=== PATIENT | female | born 1930 | race Caucasian/White ===

== ENCOUNTER 2017-04-29 18:20 | Inpatient (IN) ==
[2017-04-29] MEDS ORDERED: LACTATED RINGERS 1,000 ML IV ONE (18:33)
[2017-04-29] MEDS ORDERED: ACETAMINOPHEN 1,000 MG/100 ML BOTTLE IV ONE (18:40)
[2017-04-29] MEDS ORDERED: ONDANSETRON 4 MG/2 ML VIAL ONE (18:41)
--- NOTE | 2017-04-29 18:47 | Emergency Department Note ---
Fever HPI - General Chief Complaint: Fever Stated Complaint: Vomiting, fever Time Seen by Provider: 04/29/17 18:23 Source: patient, EMS Mode of arrival: EMS Limitations: no limitations - History of Present Illness HPI Narrative: 87-year-old female presents with vomiting, nausea, and fever that started this afternoon. She states she is vomited at least 10 times. She does not know if she aspirated at all. She states she is feeling well this morning and was able to eat a sandwich. She started feeling woozy with headache, some dizziness, and then started to vomit multiple times. She is brought in by EMS and her temp and EMS was 104.1. She also vomited which she was given Zofran in the IV which she states is helping. She denies any new abdominal pain. She states she has chronic bandlike abdominal pain after she eats. She denies any significant urinary symptoms. She has a cough only when she is talking on the phone. Runny nose that is chronic. The only thing that is new is some shortness of breath in the vomiting. She also felt chilled earlier today. She is weak and was not able to get up out of her chair earlier today as well. She has had normal stools today and has a history of having some diarrhea versus constipation. Nothing significant recently. She had a flu shot this year. She has a history of diabetes, CHF, and renal disease. She is not usually on oxygen but was satting 88% when EMS arrived at her house. She is on 3 L satting around 94% - Related Data Home Medications Medication Instructions Recorded Confirmed Aspirin [Susan Chewable Aspirin] 81 mg PO DAILY 11/30/14 04/29/17 Carvedilol [Coreg] 25 mg PO BID 11/30/14 04/29/17 Furosemide [Lasix] 40 mg PO DAILY 11/30/14 04/29/17 Potassium Chloride [Kdur] 10 meq PO BIDCC 11/30/14 04/29/17 losartan 100 mg tablet 100 mg PO QDAY 02/16/17 04/29/17 Previous Rx's Medication Instructions Recorded metformin 500 mg tablet 500 mg PO DAILY #30 tab 04/05/17 metoprolol succinate ER 100 mg 100 mg PO DAILY #30 tab 04/05/17 tablet,extended release 24 hr Allergies Allergy/AdvReac Type Severity Reaction Status Date / Time NO KNOWN DRUG ALLERGIES Allergy Unknown Uncoded 08/30/14 13:55 Review of Systems All systems ED: reviewed and negative except as stated. 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 Absent: conjunctival injection Neck: Present: normal inspection, full ROM Chest: Present: normal inspection, symmetric chest wall rise Respiratory: Present: other (decreased in right lower lobes) Cardiovascular: Present: regular rate, normal heart sounds Abdominal: Present: soft, tenderness, normal bowel sounds. Absent: distention, guarding, rebound Abdominal tenderness: Present: suprapubic, mild Extremities: Present: normal inspection, full ROM. Absent: pedal edema Neurological: Present: alert, oriented X3, CN II-XII intact Psychiatric: Present: normal affect, normal mood Skin: Present: warm, dry, intact Course Course Narrative: She will be admitted. Urine positive for nitrates. Vital Signs Temperature 102.8 F H 04/29/17 18:22 Pulse Rate 92 H 04/29/17 18:22 Respiratory Rate 30 H 04/29/17 18:22 Blood Pressure 170/73 04/29/17 18:22 Pulse Oximetry (%) 93 04/29/17 18:22 Temperature 99.9 F H 04/29/17 20:49 Pulse Rate 78 04/29/17 21:02 Respiratory Rate 30 H 04/29/17 18:22 Blood Pressure 132/102 04/29/17 21:02 Pulse Oximetry (%) 97 04/29/17 21:02 Fever - Lab Data Lab results reviewed: Yes I reviewed the patient's lab results. Result diagrams: 04/29/17 18:50 04/29/17 18:50 Lab Results 04/29/17 04/29/17 04/29/17 Range/Units 18:50 18:50 18:50 WBC 10.4 (4.5-11.0) K/mcL RBC 4.03 (4.00-5.20) M/mcL Hgb 12.1 (12.0-15.0) g/dL Hct 36.0 (36.0-48.0) % MCV 89.3 (80.0-100.0) fL MCH 30.0 (26.0-34.0) pg MCHC 33.6 (31.0-36.0) g/dL RDW 13.2 (11.5-14.5) % Plt Count 141 (140-440) K/mcL MPV 7.2 L (7.4-10.4) fL Total Counted 100 Seg Neutrophils % 73 (38-78) % Band Neutrophils % 18 H (0-10) % Lymphocytes % 7 L (15-49) % Monocytes % (Manual) 2 (1-12) % Platelet Estimate Normal (NORMAL) RBC Morphology Normal (NORMAL) VBG Lactic Acid 1.1 (0.5-2.2) mmol/L Sodium 135 (133-145) mmol/L Potassium 3.3 (3.3-5.1) mmol/L Chloride 95 L (96-108) mmol/L Carbon Dioxide 25 (22-30) mmol/L Anion Gap 15.0 (8-16) BUN 20 (8-23) mg/dl Creatinine 1.2 H (0.6-1.1) mg/dl GFR Calculation 40 Glucose 174 H (70-105) mg/dL Calcium 8.6 (8.6-10.4) mg/dl Total Bilirubin 1.1 H (0.0-1.0) mg/dL AST 33 (0-37) U/l ALT 26 (0-40) U/l Alkaline Phosphatase 96 (39-117) U/L Troponin T (0-0.03) ng/ml NT-Pro-B Natriuret Pep 703.4 H (0-450) pg/ml Total Protein 6.5 (5.9-8.4) gm/dL Albumin 3.8 (3.2-5.2) gm/dL Globulin 2.7 (2.2-3.7) gm/dL Albumin/Globulin Ratio 1.4 (1.0-2.3) Procalcitonin (<0.10) ng/mL Urine Color Urine Appearance Urine pH (5.0-9.0) Ur Specific Navarro (1.000-1.035) Urine Protein (NEG) mg/dL Urine Glucose (UA) (NEG) mg/dL Urine Ketones (NEG) mg/dL Urine Occult Blood (<0.03) mg/dL Urine Nitrate (NEG) Urine Bilirubin (NEG) mg/dL Urine Urobilinogen (NEG) mg/dL Ur Leukocyte Esterase (NEG) /uL Urine RBC (0-1) /hpf Urine WBC (0-4) /hpf Ur Squamous Epith Cells (0-4) /hpf Ur Transition Epith Cell (0-2) /hpf Urine Bacteria (0) /hpf Urine Mucus (0) /hpf Ur Culture Indicated? 04/29/17 04/29/17 04/29/17 Range/Units 18:50 18:50 20:40 WBC (4.5-11.0) K/mcL RBC (4.00-5.20) M/mcL Hgb (12.0-15.0) g/dL Hct (36.0-48.0) % MCV (80.0-100.0) fL MCH (26.0-34.0) pg MCHC (31.0-36.0) g/dL RDW (11.5-14.5) % Plt Count (140-440) K/mcL MPV (7.4-10.4) fL Total Counted Seg Neutrophils % (38-78) % Band Neutrophils % (0-10) % Lymphocytes % (15-49) % Monocytes % (Manual) (1-12) % Platelet Estimate (NORMAL) RBC Morphology (NORMAL) VBG Lactic Acid (0.5-2.2) mmol/L Sodium (133-145) mmol/L Potassium (3.3-5.1) mmol/L Chloride (96-108) mmol/L Carbon Dioxide (22-30) mmol/L Anion Gap (8-16) BUN (8-23) mg/dl Creatinine (0.6-1.1) mg/dl GFR Calculation Glucose (70-105) mg/dL Calcium (8.6-10.4) mg/dl Total Bilirubin (0.0-1.0) mg/dL AST (0-37) U/l ALT (0-40) U/l Alkaline Phosphatase (39-117) U/L Troponin T < 0.01 (0-0.03) ng/ml NT-Pro-B Natriuret Pep (0-450) pg/ml Total Protein (5.9-8.4) gm/dL Albumin (3.2-5.2) gm/dL Globulin (2.2-3.7) gm/dL Albumin/Globulin Ratio (1.0-2.3) Procalcitonin 0.80 (<0.10) ng/mL Urine Color Yellow Urine Appearance Cloudy Urine pH 6.0 (5.0-9.0) Ur Specific Navarro 1.013 (1.000-1.035) Urine Protein 30 A (NEG) mg/dL Urine Glucose (UA) Negative (NEG) mg/dL Urine Ketones Neg (NEG) mg/dL Urine Occult Blood 0.03 A (<0.03) mg/dL Urine Nitrate Pos A (NEG) Urine Bilirubin Neg (NEG) mg/dL Urine Urobilinogen 2.0 A (NEG) mg/dL Ur Leukocyte Esterase 500 A (NEG) /uL Urine RBC 4 H (0-1) /hpf Urine WBC > 182 H (0-4) /hpf Ur Squamous Epith Cells 6 H (0-4) /hpf Ur Transition Epith Cell 1 (0-2) /hpf Urine Bacteria Few A (0) /hpf Urine Mucus Few (0) /hpf Ur Culture Indicated? Yes - Radiology Data Radiology results reviewed: Yes I reviewed the patient's radiology results. Possible right-sided hilar pneumonia. Cardiomegaly - EKG Data EKG attestation: Yes I reviewed and interpreted this EKG. EKG results narrative: No acute ischemia. Disposition Pt seen by CLERK SECRETARY/PA only: Yes Clinical Impression: Fever, Sepsis UTI (urinary tract infection) Qualifiers: Urinary tract infection type: acute cystitis Hematuria presence: without hematuria Qualified Code(s): N30.00 - Acute cystitis without hematuria Disposition: Xfer As Inpt ([facility]) Condition: Fair Referrals: Yahaira Perez DO [Primary Care Provider] -
[2017-04-29 19:16] LABS: Mean Cell Volume 89.3 fL (80.0-100.0); Mean Corpuscular HGB Conc 33.6 g/dL (31.0-36.0); Platelet Count 141 K/mcL (140-440); RBC 4.03 M/mcL (4.00-5.20); Red Cell Distribution Width 13.2 % (11.5-14.5)
[2017-04-29 19:36] LABS: proBNP 703.4 pg/ml (0-450)
[2017-04-29 19:39] LABS: ALT/SGPT 26 U/l (0-40); Albumin 3.8 gm/dL (3.2-5.2); Albumin/Globulin Ratio 1.4 (1.0-2.3); Alkaline Phosphatase 96 U/L (39-117); Band Neutrophils % 18 % (0-10); Blood Urea Nitrogen 20 mg/dl (8-23); Lymphocytes % 7 % (15-49); Monocytes % (Manual) 2 % (1-12); Platelet Estimate NORMAL (NORMAL); RBC Morphology NORMAL (NORMAL); Segmented Neutrophils % 73 % (38-78)
[2017-04-29] MEDS ORDERED: cefTRIAXone 1 GM VIAL IV ONE (19:53)
--- NOTE | 2017-04-29 21:52 | Internal Med History&Physical ---
Medical - H&P: [facility] Patient information: Note initiated : 04/29/17 at 9:48 pm Service Date, if different from initiated Date: [] Patient: Mireya Paul a 87 y/o F admitted on for Vomiting, fever. Chief Complaint: weakness, vomiting, fever History of present illness: Patient is an 87-year-old female with a history of mild systolic congestive heart failure, type 2 diabetes, hypertension. Patient was feeling a little run down yesterday, but didn't think much of it. However today she was not feeling well at all. She did manage to have some food. However spent most of the morning laying around. She noticed that she was having trouble getting herself off the couch or out of a chair which is unusual for her. Normally she is independent in her ADLs. Somewhere after lunch, she became sick to her stomach. Her son called, it is hard for him to understand her on the phone. She was vomiting. The emesis was sudden in onset. It is not associated with abdominal pain. It is brownish fluid, no blood, no coffee grounds. Her son estimates this is about 4 PM. He noted she was weak, sitting up and leaning to the right. She may have aspirated some of the emesis she is unsure. Since that time she has had some shortness of breath and a cough inductive of some sputum. Secondary to the ongoing emesis she is brought to the emergency department. Found to have fever to 102, bandemia, urinary tract infection, as well as mild hypoxia with room air sats of 87% on presentation and she is being admitted. Patient denies any dysuria. Feel feverish today and then felt cold. She denies any shaking chills. She's had a dull headache, which is slowly improving. She's had dyspnea and cough is noted. No chest pain/tightness/ squeezing/pleuritic pain. No diarrhea, no abdominal pain, no vision changes, no sore throat, no myalgias. All systems: reviewed and no additional remarkable complaints except as stated Medical - H&P: PMH Medical history: Hypertension, essential (Chronic) Arthritis (Chronic) Fracture of hip (Acute) 11/2014 Diabetes type 2, controlled (Acute) CHF (congestive heart failure)-mildly reduces systolic function 11/2014 Acute renal failure (ARF) (Acute) Parotid duct obstruction (Acute) Surgical history: H/O knee surgery (Chronic) H/O shoulder surgery (Chronic) H/O shoulder surgery (Chronic) History of open reduction and internal fixation (ORIF) procedure (Chronic) Pertinent family history: Mother Arthritis Diabetes Sister Arthritis Diabetes Brother Diabetes Social history: Patient lives alone, cares for her ADLs herself. Her second in February 2015. One son lives in the area. She does not smoke. She does not drink alcohol. Medical - H&P: Meds Home Medications Medication Instructions Recorded Confirmed Type Aspirin [Susan Chewable Aspirin] 81 mg PO DAILY 11/30/14 04/29/17 History Carvedilol [Coreg] 25 mg PO BID 11/30/14 04/29/17 History Furosemide [Lasix] 40 mg PO DAILY 11/30/14 04/29/17 History Potassium Chloride [Kdur] 10 meq PO BIDCC 11/30/14 04/29/17 History losartan 100 mg tablet 100 mg PO QDAY 02/16/17 04/29/17 History metformin 500 mg tablet 500 mg PO DAILY #30 tab 04/05/17 04/29/17 Rx metoprolol succinate ER 100 mg 100 mg PO DAILY #30 tab 04/05/17 04/29/17 Rx tablet,extended release 24 hr Allergies Allergy/AdvReac Type Severity Reaction Status Date / Time NO KNOWN DRUG ALLERGIES Allergy Unknown Uncoded 08/30/14 13:55 Medical - H&P: Exam - Constitutional Vitals: Temp Pulse Resp BP Pulse Ox 99.9 F H 81 30 H 122/53 96 04/29/17 20:49 04/29/17 20:16 04/29/17 18:22 04/29/17 20:16 04/29/17 20:16 Exam: General: Alert, in no acute distress HEENT: Normocephalic. Pupils are equally round and reactive to light. Sclera are anicteric. No conjunctival injection. Oropharynx is with tacky mucous membranes, no lip or gum lesions. Tongue is midline, mildyl erythematous. Neck: Supple, no meningismus. No thyromegaly. Chest: Rales in the left base, do not clear with cough. Otherwise clear, no wheezing, respirations unlabored Cardiovascular: Regular rate and rhythm without murmur gallop or rub. Carotid pulses are 2+ without bruit. There is no lower extremity edema. Abdomen: Soft, mild suprapubic tenderness to palpation, bowel sounds are active. No hepatosplenomegaly appreciated. Lymphatic: No cervical or supraclavicular lymphadenopathy. Skin: Warm, dry. Skin turgor is decreased Musculoskeletal: No joint erythema or tenderness. Normal range of motion in the upper and lower extremities. Strength 5/5 in upper and lower extremities. Digits without cyanosis or clubbing. Neuro: Alert, oriented X3. Cranial nerves II through XII grossly intact. Sensation intact to light touch. Psychiatric: Affect and orientation are normal. Good insight. Medical - H&P: Reslt - Labs CBC & Chem 7: 04/29/17 18:50 04/29/17 18:50 Labs: Short CBC 04/29/17 Range/Units 18:50 WBC 10.4 (4.5-11.0) K/mcL Hgb 12.1 (12.0-15.0) g/dL Hct 36.0 (36.0-48.0) % Plt Count 141 (140-440) K/mcL BMP 04/29/17 18:50 Sodium 135 Potassium 3.3 Chloride 95 L Carbon Dioxide 25 BUN 20 Creatinine 1.2 H Glucose 174 H Calcium 8.6 Cardiac Enzymes 04/29/17 Range/Units 18:50 Troponin T < 0.01 (0-0.03) ng/ml Liver Function 04/29/17 Range/Units 18:50 Total Bilirubin 1.1 H (0.0-1.0) mg/dL AST 33 (0-37) U/l ALT 26 (0-40) U/l Alkaline Phosphatase 96 (39-117) U/L Albumin 3.8 (3.2-5.2) gm/dL Urine dip in the ED, large leukocytes, positive nitrites - EKG Data -: EKG Reviewed by Myself (sinus rhythm, rate of 91, left bundle branch block ( old).) - Imaging and Cardiology Chest x-ray Status: image reviewed by me (infiltrate right lower lobe) Medical - H&P: A/P (1) Sepsis Current visit: Yes Status: Acute (2) UTI (urinary tract infection) Current visit: Yes Status: Acute (3) Pneumonia Current visit: Yes Status: Acute (4) Acute respiratory failure with hypoxemia Current visit: Yes Status: Acute (5) CHF (congestive heart failure) Current visit: Yes Status: Acute (6) Diabetes type 2, controlled Current visit: Yes Status: Acute (7) Hypertension, essential Current visit: Yes Status: Chronic - Narrative A/P Narrative: 87-year-old female with significant history of diabetes, CHF, hypertension presents with abrupt onset of nausea, vomiting, weakness, fever. Found to have sepsis with urinary tract infection, hypoxia and suspected pneumonia. Sepsis. Certainly urine appears to be a source of infection. May also have a concomitant pneumonia, suspect may be aspiration in nature. Lactate is normal. Not severe sepsis. Hemodynamics are stable. Plan: Inpatient admission Continue antibiotics IV fluids Follow-up cultures. Urinary tract infection. Initial dip in the ED is positive for leukocyte esterase and nitrates. Formal urinalysis and microscopic is pending. Has received ceftriaxone in the ED. Plan: Continue ceftriaxone, follow-up cultures. Hypoxia with abnormal lung exam, abnormal radiograph. She has rales in the left lung field on exam, abnormalities in the right lower lobe on radiograph. May be an aspiration event with her prolonged emesis. Thus could be a chemical pneumonitis. Community-acquired pneumonia also possible. Plan: Continue ceftriaxone, supplemental oxygen as needed. Congestive heart failure with mild systolic dysfunction in 2015. Appears compensated. Suspect crackles are secondary to inflammation and not volume overload on her lung exam. Otherwise no evidence of volume overload. Plan: Continue with home regimen. Type 2 diabetes. Glucose is mildly elevated on admit labs in the 170s, though significant stress. Plan: We'll metformin, sliding scale insulin, Accu-Cheks, diabetic diet. Hypertension. No evidence of hemodynamic instability. Plan: Continue home regimen. Prophylaxis: Subcutaneous heparin. CODE STATUS, discussed with the patient, she wishes to be DO NOT RESUSCITATE.
[2017-04-29 21:58] LABS: Appearance,Urine CLOUDY; Bacteria,Urine FEW /hpf (0); Bilirubin,Urine NEG (NEG); Color,Urine YELLOW; Glucose,Urine (UA) NEGATIVE (NEG); Leukocyte Esterase,Urine 500 /uL (NEG); Mucus,Urine FEW /hpf (0); Protein,Urine 30 mg/dL (NEG); Specific Gravity,Urine 1.013 (1.000-1.035); Urine Blood 0.03 mg/dL (<0.03); Urine RBC 4 /hpf (0-1); Urine Squamous Epithelial Cell 6 /hpf (0-4); Urine Transitional Epi Cells 1 /hpf (0-2); Urine WBC > 182 /hpf (0-4)
[2017-04-29] MEDS ORDERED: ACETAMINOPHEN 325 MG TABLET PO PRN (22:09)
[2017-04-29] MEDS ORDERED: DEXTROSE 31 GM ORAL.SUSP PO PRN (22:09)
[2017-04-29] MEDS ORDERED: DEXTROSE 50% 50 ML VIAL IV PRN (22:09)
[2017-04-29] MEDS ORDERED: ONDANSETRON 4 MG/2 ML VIAL IV PRN (22:09)
[2017-04-29] MEDS: 0.9 % SODIUM CHLORIDE 10 ML SYRINGE IV SCH (22:29)
[2017-04-29] MEDS: 0.9 % SODIUM CHLORIDE 1,000 ML IV SCH (22:29)
[2017-04-30] MEDS: 0.9 % SODIUM CHLORIDE 10 ML SYRINGE IV SCH ×3 (04:56→22:43)
[2017-04-30] MEDS: INSULIN LISPRO 1 UNIT/0.01 ML UNIT SQ SCH ×4 (07:00→22:42)
[2017-04-30 07:16] LABS: Mean Cell Volume 89.9 fL (80.0-100.0); Mean Corpuscular HGB Conc 33.4 g/dL (31.0-36.0); Platelet Count 140 K/mcL (140-440); RBC 3.64 M/mcL (4.00-5.20); Red Cell Distribution Width 13.6 % (11.5-14.5)
--- NOTE | 2017-04-30 07:53 | XRay Report ---
HISTORY: Reason for Exam:fever, low 02 sat FINDINGS: There is no evidence of pneumonia, adenopathy or pleural effusion. The heart size is within normal limits and there is no congestive heart failure. The aorta is tortuous. There are several scattered calcifications in the mid and lower thorax on the left side. These are a chronic stable finding and could be granulomata or calcified pleural plaques. There are prosthesis in both shoulders. Comparison with the prior exam from 12/03/14 shows the heart is somewhat smaller on today's exam. There has been no other significant change. IMPRESSION: No acute abnormality Interpreted and Authenticated by: Luis Garcia 04/30/17
[2017-04-30 07:56] LABS: Blood Urea Nitrogen 18 mg/dl (8-23)
[2017-04-30] MEDS ORDERED: PNEUMOCOCCAL 23-VAL P-SAC VAC 0.5 ML VIAL IM ONE (08:00)
[2017-04-30 08:50] LABS: Band Neutrophils % 5 % (0-10); Lymphocytes % 11 % (15-49); Monocytes % (Manual) 2 % (1-12); Platelet Estimate NORMAL (NORMAL); RBC Morphology NORMAL (NORMAL); Segmented Neutrophils % 82 % (38-78)
[2017-04-30] MEDS: HEPARIN 5,000 UNIT/ML VIAL SQ SCH ×2 (09:22→22:42)
[2017-04-30] MEDS: cefTRIAXone 1 GM VIAL IV SCH (09:22)
[2017-04-30] MEDS: 0.9 % SODIUM CHLORIDE 1,000 ML IV SCH ×2 (09:23→19:54)
--- NOTE | 2017-04-30 11:35 | Internal Med Progress Note ---
Medical - PN: Subj Patient information: Note initiated : 04/30/17 at 11:33 am Service Date, if different from initiated Date: [] Patient: Mierya Paul a 87 y/o F admitted on 04/29/17 for Vomiting, Fever/ Sepsis, UTI, Pneumonia, Hypoxia. Chief Complaint: f/u UTI, sepsis Interval history: 04/29-Patient is an 87-year-old female with a history of mild systolic congestive heart failure, type 2 diabetes, hypertension. Patient was feeling a little run down yesterday, but didn't think much of it. However today she was not feeling well at all. She did manage to have some food. However spent most of the morning laying around. She noticed that she was having trouble getting herself off the couch or out of a chair which is unusual for her. Normally she is independent in her ADLs. Somewhere after lunch, she became sick to her stomach. Her son called, it is hard for him to understand her on the phone. She was vomiting. The emesis was sudden in onset. It is not associated with abdominal pain. It is brownish fluid, no blood, no coffee grounds. Her son estimates this is about 4 PM. He noted she was weak, sitting up and leaning to the right. She may have aspirated some of the emesis she is unsure. Since that time she has had some shortness of breath and a cough inductive of some sputum. Secondary to the ongoing emesis she is brought to the emergency department. Found to have fever to 102, bandemia, urinary tract infection, as well as mild hypoxia with room air sats of 87% on presentation and she is being admitted. 04/30-feels much better today. No nausea or vomiting. Tolerating diet. No fever or chills. Discussed findings on blood cultures and plan for IV antibiotics and surveillance cultures over the next few days. - Constitutional Vitals: Vital Signs Temp Pulse Resp BP Pulse Ox 97.7 F 56 L 16 147/62 98 04/30/17 06:44 04/30/17 06:45 04/30/17 06:45 04/30/17 06:44 04/30/17 06:45 Period Temp Pulse Resp BP Sys/Mayen Pulse Ox Last 24 Hr 97.7 F-102.8 F 53-92 16-30 103-170/50-102 93-98 Intake and Output 04/29/17 04/30/17 04/30/17 21:59 05:59 13:59 Intake Total 1100 / 1100 1000 / 1000 Output Total 350 / 350 Balance 1100 / 1100 -350 / -350 1000 / 1000 Weight 165 lb 181 lb 6.4 oz 181 lb 6.4 oz Patient Weight 05/01/17 05:59 Weight 181 lb 6.4 oz Intake & Output: Intake & Output 04/29/17 04/30/17 04/30/17 21:59 05:59 13:59 Intake Total 1100 / 1100 1000 / 1000 Output Total 350 / 350 Balance 1100 / 1100 -350 / -350 1000 / 1000 Weight 165 lb 181 lb 6.4 oz 181 lb 6.4 oz Intake: IV 1100 / 1100 1000 / 1000 Sodium Chloride 0.9% 1,000 ml @ 1000 / 1000 100 mls/hr IV .Q10H [facility] Rx#: [id number] Lactated Ringers 1,000 ml @ 1000 / 1000 Wide Open IV BOLUS ONE Rx#: [id number] Output: Void Amount 350 / 350 Other: # Voids 1 Exam: General: Lying in bed, no acute distress Chest: Clear, no rales, nonlabored Cardiovascular: Regular, no murmur, no edema Abdomen: Soft, nontender, active bowel sounds Neuro: Alert, oriented 3, nonfocal Medical - PN: Obj Da - Labs CBC & Chem 7: 04/30/17 05:32 04/30/17 05:32 Labs: Abnormal Lab Results 04/30/17 04/30/17 04/29/17 05:32 05:32 20:40 WBC 14.4 H RBC 3.64 L Hgb 10.9 L Hct 32.7 L MPV Seg Neutrophils % 82 H Band Neutrophils % Lymphocytes % 11 L Chloride Creatinine Glucose 139 H Calcium 8.5 L Total Bilirubin NT-Pro-B Natriuret Pep Urine Protein 30 A Urine Occult Blood 0.03 A Urine Nitrate Pos A Urine Urobilinogen 2.0 A Ur Leukocyte Esterase 500 A Urine RBC 4 H Urine WBC > 182 H Ur Squamous Epith Cells 6 H Urine Bacteria Few A 04/29/17 04/29/17 18:50 18:50 WBC RBC Hgb Hct MPV 7.2 L Seg Neutrophils % Band Neutrophils % 18 H Lymphocytes % 7 L Chloride 95 L Creatinine 1.2 H Glucose 174 H Calcium Total Bilirubin 1.1 H NT-Pro-B Natriuret Pep 703.4 H Urine Protein Urine Occult Blood Urine Nitrate Urine Urobilinogen Ur Leukocyte Esterase Urine RBC Urine WBC Ur Squamous Epith Cells Urine Bacteria Microbiology 04/29/17 20:40 Urine Culture - Preliminary Urine - Clean Void Mid-Stream Escherichia coli 04/29/17 18:50 Blood Culture - Preliminary Blood Gram negative bacillus 04/29/17 19:10 Blood Culture - Preliminary Blood Gram negative bacillus Meds: Medications Acetaminophen (Tylenol) 650 mg PO Q6HP PRN PRN Reason: PAIN/FEVER > 101 Albuterol Sulfate (Ventolin) 2.5 mg NEB Q2HP PRN PRN Reason: Shortness Of Breath Ceftriaxone Sodium (Rocephin) 1 gm IV DAILY [facility] Last Admin: 04/30/17 09:22 Dose: 1 gm Dextrose (Dextrose 50%) 0 ml IV UD PRN PRN Reason: Hypoglycemia Diagnostic Test (Pha) (Accu-Chek) 1 each FS ACHS [facility] Last Admin: 04/30/17 11:32 Dose: 1 each Glucose (Insta-Glucose) 15 gm PO PRN PRN PRN Reason: Hypoglycemia Heparin Sodium (Porcine) (Heparin) 5,000 unit SQ Q12 [facility] Last Admin: 04/30/17 09:22 Dose: 5,000 unit Sodium Chloride (Sodium Chloride 0.9%) 1,000 mls @ 100 mls/hr IV .Q10H [facility] Last Admin: 04/30/17 09:23 Dose: 100 mls/hr Insulin Human Lispro (Humalog) 0 unit SQ ACHS [facility] PRN Reason: Protocol Last Admin: 04/30/17 07:00 Dose: Not Given Ondansetron HCl (Zofran) 4 mg IV Q6HP PRN PRN Reason: Nausea And Vomiting Pneumococcal Polyvalent Vaccine (Pneumovax 23) 0.5 ml IM .ONCE ONE Stop: 05/01/17 10:01 Sodium Chloride (Saline Flush) 10 ml IV Q8 [facility] Last Admin: 04/30/17 04:56 Dose: Not Given - Imaging and cardiology Chest x-ray Additional comments: IMPRESSION: No acute abnormality Medical - PN: A/P - Time Spent With Patient Total time spent is greater than 50% in coordination of care (as documented) at patient's floor/unit and/or counseling patient: Greater than 35 minutes (1) Sepsis Status: Acute Current Visit: Yes (2) UTI (urinary tract infection) Status: Acute Current Visit: Yes (3) Acute respiratory failure with hypoxemia Status: Acute Current Visit: Yes (4) CHF (congestive heart failure) Status: Acute Current Visit: Yes (5) Diabetes type 2, controlled Status: Acute Current Visit: Yes (6) Hypertension, essential Status: Chronic Current Visit: Yes - Narrative A/P Narrative: 87-year-old female with significant history of diabetes, CHF, hypertension presents with abrupt onset of nausea, vomiting, weakness, fever. Found to have sepsis with urinary tract infection, hypoxia and suspected pneumonia, though radiograph formally read as normal. Sepsis. Urinary source with gram-negative bacteremia. Leukocytosis developing today, though bandemia is improved. Suspect this represents normal response to sepsis. Plan: Continue with current antibiotics, follow up urine and blood cultures. Plan to obtain surveillance blood cultures tomorrow. They're negative at 48 hours, likely can be discharged with 2 weeks of oral antibiotics. Urinary tract infection with gram negative bacteremia. Plan: Continue ceftriaxone, follow-up cultures, as above. Hypoxia with abnormal lung exam. Chest radiograph formally read as normal. Rales in the left lung exam have now resolved. May have had transient aspiration pneumonitis after emesis. Acute hypoxic respiratory failure is improving. Plan: Continue ceftriaxone, supplemental oxygen as needed. Congestive heart failure with mild systolic dysfunction in 2014. Appears compensated. Plan: Continue with home regimen. Type 2 diabetes. Glucose is mildly elevated on admit labs in the 170s, though significant stress. Plan: We'll metformin, sliding scale insulin, Accu-Cheks, diabetic diet. Hypertension. No evidence of hemodynamic instability. Plan: Continue home regimen. Prophylaxis: Subcutaneous heparin. CODE STATUS, discussed with the patient, she wishes to be DO NOT RESUSCITATE. Medical - PN: Qual - VTE Deep Vein Thrombosis/Pulmonary Embolism Present on Admission: No
[2017-04-30] MEDS ORDERED: cefTRIAXone 1 GM in DEXTROSE 5% IN WATER 50 ML IV SCH (20:00)
[2017-05-01] MEDS: ALBUTEROL SULFATE 2.5 MG/3 ML NEBULIZER NEB PRN ×4 (01:59→17:38)
[2017-05-01] MEDS: 0.9 % SODIUM CHLORIDE 1,000 ML IV SCH ×2 (04:10→06:32)
[2017-05-01] MEDS: 0.9 % SODIUM CHLORIDE 10 ML SYRINGE IV SCH ×3 (04:36→20:13)
[2017-05-01 05:48] LABS: Mean Cell Volume 90.2 fL (80.0-100.0); Mean Corpuscular HGB Conc 33.4 g/dL (31.0-36.0); Mean Corpuscular Hemoglobin 30.1 pg (26.0-34.0); Platelet Count 135 K/mcL (140-440); RBC 3.59 M/mcL (4.00-5.20); Red Cell Distribution Width 13.5 % (11.5-14.5)
[2017-05-01 05:59] LABS: Blood Urea Nitrogen 16 mg/dl (8-23)
[2017-05-01 06:43] LABS: Eosinophils % (Manual) 1 % (0-7); Lymphocytes % 15 % (15-49); Monocytes % (Manual) 10 % (1-12); Platelet Estimate NORMAL (NORMAL); RBC Morphology NORMAL (NORMAL); Segmented Neutrophils % 74 % (38-78)
[2017-05-01] MEDS: INSULIN LISPRO 1 UNIT/0.01 ML UNIT SQ SCH ×4 (07:04→19:16)
[2017-05-01] MEDS: LOSARTAN 50 MG TABLET PO SCH (08:51)
[2017-05-01] MEDS: CARVEDILOL 12.5 MG TABLET PO SCH ×2 (08:51→17:16)
[2017-05-01] MEDS: HEPARIN 5,000 UNIT/ML VIAL SQ SCH ×2 (08:51→19:34)
[2017-05-01] MEDS: FUROSEMIDE 40 MG TABLET PO SCH (08:51)
[2017-05-01] MEDS: cefTRIAXone 1 GM VIAL IV SCH (08:52)
[2017-05-01] MEDS ORDERED: PNEUMOCOCCAL 23-VAL P-SAC VAC 0.5 ML VIAL IM ONE (10:00)
--- NOTE | 2017-05-01 11:20 | Internal Med Progress Note ---
Medical - PN: Subj Patient information: Note initiated : 05/01/17 at 11:18 am Service Date, if different from initiated Date: [] Patient: Mireya Paul a 87 y/o F admitted on 04/29/17 for Vomiting, Fever/ Sepsis, UTI, Pneumonia, Hypoxia. Chief Complaint: follow-up UTI, sepsis, bacteremia Interval history: 04/29-Patient is an 87-year-old female with a history of mild systolic congestive heart failure, type 2 diabetes, hypertension. Patient was feeling a little run down yesterday, but didn't think much of it. However today she was not feeling well at all. She did manage to have some food. However spent most of the morning laying around. She noticed that she was having trouble getting herself off the couch or out of a chair which is unusual for her. Normally she is independent in her ADLs. Somewhere after lunch, she became sick to her stomach. Her son called, it is hard for him to understand her on the phone. She was vomiting. The emesis was sudden in onset. It is not associated with abdominal pain. It is brownish fluid, no blood, no coffee grounds. Her son estimates this is about 4 PM. He noted she was weak, sitting up and leaning to the right. She may have aspirated some of the emesis she is unsure. Since that time she has had some shortness of breath and a cough inductive of some sputum. Secondary to the ongoing emesis she is brought to the emergency department. Found to have fever to 102, bandemia, urinary tract infection, as well as mild hypoxia with room air sats of 87% on presentation and she is being admitted. 2/2-feels much better today. No nausea or vomiting. Tolerating diet. No fever or chills. Discussed findings on blood cultures and plan for IV antibiotics and surveillance cultures over the next few days. 2/3-no complaints this morning. No fever or chills. Appetite is good. Discussed with patient her home meds, she has both carvedilol and metoprolol on her list. She states she's been on those for several years, is unsure why she is on 2 meds from the same class. - Constitutional Vitals: Vital Signs Temp Pulse Resp BP Pulse Ox 97.9 F 78 22 188/77 91 05/01/17 06:21 05/01/17 04:00 05/01/17 07:18 05/01/17 06:21 05/01/17 06:21 Period Temp Pulse Resp BP Sys/Mayen Pulse Ox Last 24 Hr 96.9 F-98.5 F 62-78 16-26 154-188/70-80 91-96 Intake and Output 04/30/17 05/01/17 05/01/17 21:59 05:59 13:59 Intake Total 1200 / 1200 1100 / 1100 120 / 120 Output Total 800 / 800 300 / 300 Balance 1200 / 1200 300 / 300 -180 / -180 Weight 178 lb 4.8 oz Intake & Output: Intake & Output 04/30/17 05/01/17 05/01/17 21:59 05:59 13:59 Intake Total 1200 / 1200 1100 / 1100 120 / 120 Output Total 800 / 800 300 / 300 Balance 1200 / 1200 300 / 300 -180 / -180 Weight 178 lb 4.8 oz Intake: IV 1000 / 1000 1000 / 1000 Sodium Chloride 0.9% 1,000 ml @ 1000 / 1000 1000 / 1000 100 mls/hr IV .Q10H [facility] Rx#: [id number] Oral 200 / 200 100 / 100 120 / 120 Output: Void Amount 800 / 800 300 / 300 Other: Meal Breakfast Percent of Meal Consumed 75% Feeding Ability Independent # Voids 1 1 Exam: General: In no acute distress Chest: Clear, no rales Cardiovascular: Regular, no murmur, trace edema Abdomen: Soft, nontender Neuro: Alert, oriented, strength intact, nonfocal Medical - PN: Obj Da - Labs CBC & Chem 7: 05/01/17 04:49 05/01/17 04:49 Labs: Abnormal Lab Results 05/01/17 05/01/17 04/30/17 04:49 04:49 05:32 WBC RBC 3.59 L Hgb 10.8 L Hct 32.3 L Plt Count 135 L MPV Seg Neutrophils % Band Neutrophils % Lymphocytes % Chloride Creatinine Glucose 139 H Calcium 8.2 L 8.5 L Total Bilirubin NT-Pro-B Natriuret Pep Urine Protein Urine Occult Blood Urine Nitrate Urine Urobilinogen Ur Leukocyte Esterase Urine RBC Urine WBC Ur Squamous Epith Cells Urine Bacteria 04/30/17 04/29/17 04/29/17 05:32 20:40 18:50 WBC 14.4 H RBC 3.64 L Hgb 10.9 L Hct 32.7 L Plt Count MPV Seg Neutrophils % 82 H Band Neutrophils % Lymphocytes % 11 L Chloride 95 L Creatinine 1.2 H Glucose 174 H Calcium Total Bilirubin 1.1 H NT-Pro-B Natriuret Pep 703.4 H Urine Protein 30 A Urine Occult Blood 0.03 A Urine Nitrate Pos A Urine Urobilinogen 2.0 A Ur Leukocyte Esterase 500 A Urine RBC 4 H Urine WBC > 182 H Ur Squamous Epith Cells 6 H Urine Bacteria Few A 04/29/17 18:50 WBC RBC Hgb Hct Plt Count MPV 7.2 L Seg Neutrophils % Band Neutrophils % 18 H Lymphocytes % 7 L Chloride Creatinine Glucose Calcium Total Bilirubin NT-Pro-B Natriuret Pep Urine Protein Urine Occult Blood Urine Nitrate Urine Urobilinogen Ur Leukocyte Esterase Urine RBC Urine WBC Ur Squamous Epith Cells Urine Bacteria Microbiology 04/29/17 19:10 Blood Culture - Preliminary Blood Escherichia coli 04/29/17 20:40 Urine Culture - Final Urine - Clean Void Mid-Stream Escherichia coli 04/29/17 18:50 Blood Culture - Preliminary Blood Gram negative bacillus Meds: Medications Acetaminophen (Tylenol) 650 mg PO Q6HP PRN PRN Reason: PAIN/FEVER > 101 Albuterol Sulfate (Ventolin) 2.5 mg NEB Q2HP PRN PRN Reason: Shortness Of Breath Last Admin: 05/01/17 10:14 Dose: 2.5 mg [facility]) [facility] Last Admin: 05/01/17 08:51 Dose: 25 mg Ceftriaxone Sodium (Rocephin) 1 gm IV DAILY [facility] Last Admin: 05/01/17 08:52 Dose: 1 gm Dextrose (Dextrose 50%) 0 ml IV UD PRN PRN Reason: Hypoglycemia Diagnostic Test (Pha) (Accu-Chek) 1 each FS [facility] Last Admin: 05/01/17 07:03 Dose: 1 each Furosemide (Lasix) 40 mg PO DAILY [facility] Last Admin: 05/01/17 08:51 Dose: 40 mg Glucose (Insta-Glucose) 15 gm PO PRN PRN PRN Reason: Hypoglycemia Heparin Sodium (Porcine) (Heparin) 5,000 unit SQ Q12 [facility] Last Admin: 05/01/17 08:51 Dose: 5,000 unit Insulin Human Lispro (Humalog) 0 unit SQ [facility] PRN Reason: Protocol Last Admin: 05/01/17 07:04 Dose: Not Given Losartan Potassium (Cozaar) 100 mg PO DAILY [facility] Last Admin: 05/01/17 08:51 Dose: 100 mg Ondansetron HCl (Zofran) 4 mg IV Q6HP PRN PRN Reason: Nausea And Vomiting Potassium Chloride (Kdur) 10 meq PO BIDCC [facility] Sodium Chloride (Saline Flush) 10 ml IV Q8 [facility] Last Admin: 05/01/17 04:36 Dose: Not Given Medical - PN: A/P (1) Sepsis Status: Acute Current Visit: Yes (2) UTI (urinary tract infection) Status: Acute Current Visit: Yes (3) Acute respiratory failure with hypoxemia Status: Acute Current Visit: Yes (4) CHF (congestive heart failure) Status: Acute Current Visit: Yes (5) Diabetes type 2, controlled Status: Acute Current Visit: Yes (6) Hypertension, essential Status: Chronic Current Visit: Yes - Narrative A/P Narrative: 87-year-old female with significant history of diabetes, CHF, hypertension presents with abrupt onset of nausea, vomiting, weakness, fever. Found to have sepsis with urinary tract infection, hypoxia and suspected pneumonia, though radiograph formally read as normal. Sepsis. Urinary source with Escherichia coli in urine and blood. counts normalized today. Surveillance cultures drawn this morning. Plan: Continue with ceftriaxone, follow-up surveillance cultures. If negative , likely can go home in 48 hours to complete 2 weeks of antibiotics with orals. Urinary tract infection with Escherichia coli bacteremia. Plan: Continue ceftriaxone, follow-up cultures, as above. Hypoxia with abnormal lung exam. May have had transient aspiration pneumonitis after emesis. Acute hypoxic respiratory failure is improving/resolved Plan: Continue ceftriaxone, supplemental oxygen as needed. Congestive heart failure with mild systolic dysfunction in 2014. Appears compensated. Plan: Continue with home regimen. Type 2 diabetes. Glucose is mildly elevated on admit labs in the 170s, though significant stress. Plan: Holding metformin, sliding scale insulin, Accu-Cheks, diabetic diet. Hypertension. No evidence of hemodynamic instability. Plan: Continue home regimen, however only using carvedilol not metoprolol plus carvedilol. Likely will stop one of the other at discharge if doing well. Prophylaxis: Subcutaneous heparin. CODE STATUS, discussed with the patient, she wishes to be DO NOT RESUSCITATE. Medical - PN: Qual - VTE Deep Vein Thrombosis/Pulmonary Embolism Present on Admission: No
[2017-05-01] MEDS: POTASSIUM CHLORIDE 10 MEQ TABLET PO SCH (17:16)
[2017-05-02] MEDS: 0.9 % SODIUM CHLORIDE 10 ML SYRINGE IV SCH ×2 (05:50→15:28)
[2017-05-02 06:23] LABS: Mean Cell Volume 90.2 fL (80.0-100.0); Mean Corpuscular HGB Conc 33.2 g/dL (31.0-36.0); Platelet Count 145 K/mcL (140-440); RBC 3.59 M/mcL (4.00-5.20); Red Cell Distribution Width 13.6 % (11.5-14.5)
[2017-05-02 07:21] LABS: Blood Urea Nitrogen 11 mg/dl (8-23)
[2017-05-02 07:29] LABS: Eosinophils % (Manual) 1 % (0-7); Lymphocytes % 12 % (15-49); Monocytes % (Manual) 6 % (1-12); Platelet Estimate NORMAL (NORMAL); RBC Morphology NORMAL (NORMAL); Segmented Neutrophils % 81 % (38-78)
[2017-05-02] MEDS: INSULIN LISPRO 1 UNIT/0.01 ML UNIT SQ SCH ×2 (07:43→12:43)
[2017-05-02] MEDS: ALBUTEROL SULFATE 2.5 MG/3 ML NEBULIZER NEB PRN (08:07)
[2017-05-02] MEDS: HEPARIN 5,000 UNIT/ML VIAL SQ SCH (08:17)
[2017-05-02] MEDS: cefTRIAXone 1 GM VIAL IV SCH (08:17)
[2017-05-02] MEDS: FUROSEMIDE 40 MG TABLET PO SCH (08:17)
[2017-05-02] MEDS: CARVEDILOL 12.5 MG TABLET PO SCH (08:18)
[2017-05-02] MEDS: LOSARTAN 50 MG TABLET PO SCH (08:18)
[2017-05-02] MEDS: POTASSIUM CHLORIDE 10 MEQ TABLET PO SCH (08:18)
[2017-05-02] MEDS ORDERED: amLODIPine 5 MG TABLET PO ONE ×2 (11:53→15:20)
--- NOTE | 2017-05-02 11:53 | Discharge Summary ---
Medical - DS: Prov Patient information: Note initiated : 05/02/17 at 11:49 am Service Date, if different from initiated Date: [] Patient: Mireya Paul 87 y/o F admitted on 04/29/17 for Vomiting, Fever/ Sepsis, UTI, Hypoxia. Date of admission: 04/29/17 22:04 Discharge date: 05/02/17 Primary care physician: Yahaira Perez DO Admitting clinician: Susannah Blanca Discharging clinician: Susannah Blanca Medical - DS: Meds - Discharge Medications Prescriptions: amLODIPine [Norvasc] 5 mg PO DAILY #30 tab Levofloxacin [Levaquin] 500 mg PO DAILY #10 tab Active and Home Medications: Home Medications Aspirin [Susan Chewable Aspirin] 81 mg PO DAILY 11/30/14 [History Confirmed 04/15 Last Taken 04/29/17 08:00] Carvedilol [Coreg] 25 mg PO BID 11/30/14 [History Confirmed 04/29/17 Last Taken 04/29/17 08:00] Furosemide [Lasix] 40 mg PO DAILY 11/30/14 [History Confirmed 04/29/17 Last Taken 04/29/17 08:00] Potassium Chloride [Kdur] 10 meq PO BIDCC 11/30/14 [History Confirmed 04/29/17 Last Taken 04/29/17 08:00] losartan 100 mg tablet 100 mg PO QDAY 02/16/17 [History Confirmed 04/29/17 Last Taken 04/29/17 08:00] metformin 500 mg tablet 500 mg PO DAILY #30 tab 04/05/17 [Rx Confirmed 04/29/17 Last Taken 04/29/17 08:00] metoprolol succinate ER 100 mg tablet,extended release 24 hr 100 mg PO DAILY # 30 tab 04/05/17 [Rx Confirmed 04/29/17 Last Taken 04/29/17 08:00] Medical - DS: Hosp Hospital course: 04/29-Patient is an 87-year-old female with a history of mild systolic congestive heart failure, type 2 diabetes, hypertension. Patient was feeling a little run down yesterday, but didn't think much of it. However today she was not feeling well at all. She did manage to have some food. However spent most of the morning laying around. She noticed that she was having trouble getting herself off the couch or out of a chair which is unusual for her. Normally she is independent in her ADLs. Somewhere after lunch, she became sick to her stomach. Her son called, it is hard for him to understand her on the phone. She was vomiting. The emesis was sudden in onset. It is not associated with abdominal pain. It is brownish fluid, no blood, no coffee grounds. Her son estimates this is about 4 PM. He noted she was weak, sitting up and leaning to the right. She may have aspirated some of the emesis she is unsure. Since that time she has had some shortness of breath and a cough inductive of some sputum. Secondary to the ongoing emesis she is brought to the emergency department. Found to have fever to 102, bandemia, urinary tract infection, as well as mild hypoxia with room air sats of 87% on presentation and she is being admitted. 2/2-feels much better today. No nausea or vomiting. Tolerating diet. No fever or chills. Discussed findings on blood cultures and plan for IV antibiotics and surveillance cultures over the next few days. 2/3-no complaints this morning. No fever or chills. Appetite is good. Discussed with patient her home meds, she has both carvedilol and metoprolol on her list. She states she's been on those for several years, is unsure why she is on 2 meds from the same class. 2/4-feels well today, no specific complaints. No dyspnea. No lower extremity edema. Tolerating a diet. No nausea or vomiting. Vitals reviewed, no fevers. Blood pressure remains elevated. She is on both carvedilol and metoprolol at home. We'll stop metoprolol and substitute amlodipine for blood pressure management. Surveillance cultures from yesterday are without growth. Given her overall stability and lack of fever suspect they will remain without growth. Otherwise she is stable for discharge home. In summary: The patient's 87-year-old female who presented with nausea, fever as well as mild hypoxia on room air. She had evidence of urinary tract infection. There is early concerning for pneumonia, though radiograph was clear , and this was likely aspiration pneumonitis from nausea and vomiting just prior to presentation. Final diagnosis is sepsis from Escherichia coli urinary tract infection with bacteremia. Hypoxia resolved by hospital day 2. She has responded well to ceftriaxone. Surveillance cultures are negative. She'll be discharged home to complete a total of 2 weeks of antibiotics with oral levofloxacin for 10 further days for the E. coli bacteremia. Discharge diagnosis: Sepsis from E. coli UTI with bacteremia Secondary discharge diagnosis: Hypertension, medications adjusted Acute hypoxic respiratory failure, resolved - Time Spent with Patient Total time spent providing and/or coordinating discharge services: Greater than 30 minutes Medical - DS: Exam - Constitutional Vitals: Vital Signs Temp Pulse Pulse Resp BP Pulse Ox 05/02/17 08:07 87 18 05/02/17 07:57 22 05/02/17 07:36 98.2 F 18 181/75 92 05/02/17 04:00 98.4 F 75 18 188/72 92 05/02/17 00:00 98.7 F 72 16 172/63 91 05/01/17 20:00 98.6 F 71 18 168/77 93 05/01/17 17:40 77 16 05/01/17 15:10 97.9 F 20 154/89 91 Intake and Output 05/01/17 05/02/17 05/02/17 21:59 05:59 13:59 Intake Total 2187 / 2187 600 / 600 360 / 360 Output Total 250 / 250 Balance 1937 / 1937 600 / 600 360 / 360 Intake: IV 747 / 747 Oral 1440 / 1440 600 / 600 360 / 360 Output: Void Amount 250 / 250 Other: Meal Breakfast Breakfast Percent of Meal Consumed 50% 100% Feeding Ability Independent Independent # Voids 1 3 1 Weight 178 lb Additional comments: General: Sitting up in bed in no acute distress Chest: Clear, unlabored Cardiovascular: Regular, no edema Abdomen: Soft, nontender Neuro: Alert, oriented, nonfocal Medical - DS: Data Labs on day of discharge: Labs from last 24 hours 05/02/17 05/02/17 04:28 04:28 WBC 5.7 RBC 3.59 L Hgb 10.8 L Hct 32.4 L MCV 90.2 MCH 30.0 MCHC 33.2 RDW 13.6 Plt Count 145 MPV 7.6 Total Counted 100 Seg Neutrophils % 81 H Band Neutrophils % Not Reportable Lymphocytes % 12 L Monocytes % (Manual) 6 Eosinophils % (Manual) 1 Platelet Estimate Normal RBC Morphology Normal Sodium 140 Potassium 3.4 Chloride 105 Carbon Dioxide 25 Anion Gap 10.0 BUN 11 Creatinine 0.9 GFR Calculation 57 Glucose 86 Calcium 8.6 Preliminary micro results at discharge 05/01/17 09:09 Blood Culture - Preliminary Blood 05/01/17 09:19 Blood Culture - Preliminary Blood 04/29/17 18:50 Blood Culture - Preliminary Blood Escherichia coli 04/29/17 19:10 Blood Culture - Preliminary Blood Escherichia coli - Imaging and Cardiology Chest x-ray Additional comments: FINDINGS: There is no evidence of pneumonia, adenopathy or pleural effusion. The heart size is within normal limits and there is no congestive heart failure. The aorta is tortuous. There are several scattered calcifications in the mid and lower thorax on the left side. These are a chronic stable finding and could be granulomata or calcified pleural plaques. There are prosthesis in both shoulders. Comparison with the prior exam from 10/10 shows the heart is somewhat smaller on today's exam. There has been no other significant change. IMPRESSION: No acute abnormality Medical - DS: A/P - Patient/Caregiver Discharge Instructions Activity: increase activity as tolerated Diet: Regular Diet Additional Instructions: Stop taking metoprolol and continue carvedilol (Coreg) as they are similar medications Start taking amlodipine for blood pressure Start taking levofloxacin (antibiotic) daily on the morning of 05/03 until they are gone - Problem Maintenance (1) Sepsis Status: Resolved Qualifiers: Sepsis type: Escherichia coli Qualified Code(s): A41.51 - Sepsis due to Escherichia coli [E. coli] (2) UTI (urinary tract infection) Status: Resolved Qualifiers: Urinary tract infection type: site unspecified Hematuria presence: without hematuria Qualified Code(s): N39.0 - Urinary tract infection, site not specified (3) Acute respiratory failure with hypoxemia Status: Resolved (4) CHF (congestive heart failure) Status: Chronic Qualifiers: Congestive heart failure type: unspecified Congestive heart failure chronicity: chronic Qualified Code(s): I50.9 - Heart failure, unspecified (5) Diabetes type 2, controlled Status: Chronic (6) Hypertension, essential Status: Chronic - Follow up Plan Follow up with: Yahaira Perez DO [Primary Care Provider] - (1-2 weeks) Disposition: Home, Self-Care Prognosis: Good Rehab Potential: Good Overall status at discharge: patient is back to baseline Medical - DS: Qual - VTE Deep Vein Thrombosis/Pulmonary Embolism Present on Admission: No
== END 2017-05-02 15:35 | disposition home or self-care (01) | DRG 871 ==
LOC: ED 18:20 → MEDSUR 22:04
PROVIDERS: ADMIT Internal Medicine; ATTEND Internal Medicine

== ENCOUNTER 2018-06-16 13:52 | Inpatient (IN) ==
--- NOTE | 2018-06-16 14:03 | Emergency Department Note ---
Weakness HPI - General Chief complaint: Weakness Stated complaint: Weakness Time Seen by Provider: 06/16/18 13:58 Source: patient Mode of arrival: ambulatory Limitations: no limitations - History of Present Illness HPI Narrative: This patient was just discharged a couple of hours ago with an exacerbation of heart failure after being diuresed in the emergency room she was feeling much better. However at home she became weak your difficulty getting around and son thought she had some slurred speech. She has chronic leg weakness and may be weaker than usual in both legs at this time. No chest pain no shortness of breath now. - Related Data Home Medications Medication Instructions Recorded Confirmed Aspirin [Susan Chewable Aspirin] 81 mg PO DAILY 11/30/14 04/11/18 Previous Rx's Medication Instructions Recorded polyethylene glycol 3350 17 gram 17 g PO QDAY #30 each 06/14/17 oral powder packet Isosorbide Mononitrate [Imdur] 30 mg PO DAILY #30 tab.xl.24h 09/09/17 Ondansetron [Zofran ODT] 4 mg SL Q4HP PRN #4 tab 02/20/18 amlodipine 5 mg tablet 5 mg PO QDAY #90 tab 03/01/18 furosemide 40 mg tablet 40 mg PO QDAY #90 tab 03/01/18 losartan 100 mg tablet 100 mg PO QDAY #90 tab 03/01/18 metformin 500 mg tablet 500 mg PO QDAY #90 tab 03/01/18 carvedilol 25 mg tablet 25 mg PO BID #60 tab 05/25/18 potassium chloride ER 10 mEq 10 meq PO BIDCC #180 tab 05/30/18 tablet,extended release Allergies Allergy/AdvReac Type Severity Reaction Status Date / Time No Known Drug Allergies Allergy Verified 06/16/18 13:56 Review of Systems All systems ED: reviewed and negative except as stated. Past Medical History - Past Medical History Medical history: Reports: arthritis, atrial fibrillation (05/2017 per ER physician's note.), CHF (on furosemide 40/KCl; hospitalized previously.), DM (type II, not on insulin.), hyperlipidemia, hypertension, renal disease (acute renal failure), other (parotid duct obstruction. Sepsis. Pneumonia. Macular degeneration.). 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 R shoulder 2008. L shoulder 2014.) - Social History smoking status: Never smoker Alcohol use: Reports: None Drug use: Reports: none Physical Exam Limitations: no limitations General appearance: alert Head: atraumatic Eye: Present: normal appearance ENT: normal exam Neck: Present: normal inspection Chest: Present: normal inspection Respiratory: Present: normal lung sounds bilaterally Cardiovascular: Present: tachycardia, irregular rhythm, normal heart sounds Abdominal: Present: soft. Absent: distention, tenderness Neurological: Present: alert Cranial nerves: facial palsy (VII): Normal Motor strength - LUE: 5/5 Motor strength - RUE: 5/5 Motor strength - LLE: 2/5 Motor strength - RLE: 2/5 Psychiatric: Present: normal affect Skin: Present: warm Course Vital Signs Temperature 97.4 F 06/16/18 13:53 Pulse Rate 127 H 06/16/18 13:53 Respiratory Rate 20 06/16/18 13:53 Blood Pressure 132/89 06/16/18 13:53 Pulse Oximetry (%) 85 L 06/16/18 13:53 Temperature 97.4 F 06/16/18 13:53 Pulse Rate 98 H 06/16/18 17:07 Respiratory Rate 29 H 06/16/18 17:07 Blood Pressure 127/72 06/16/18 17:07 Pulse Oximetry (%) 95 06/16/18 17:07 Weakness - MDM Narrative Medical decision making narrative: Head CT was unremarkable and urinalysis does show UTI. She was treated with Levaquin and will be admitted to the hospital by Dr. Dixon - Lab Data Lab results reviewed: Yes I reviewed the patient's lab results. Lab Results 06/16/18 06/16/18 Range/Units 15:24 15:33 Troponin T < 0.01 (0-0.03) ng/ml Urine Color Yellow Urine Appearance Hazy Urine pH 7.0 (5.0-9.0) Ur Specific [place] 1.009 (1.000-1.035) Urine Protein Neg (NEG) mg/dL Urine Glucose (UA) Negative (NEG) mg/dL Urine Ketones Neg (NEG) mg/dL Urine Occult Blood 0.03 A (<0.03) mg/dL Urine Nitrate Neg (NEG) Urine Bilirubin Neg (NEG) mg/dL Urine Urobilinogen Neg (NEG) mg/dL Ur Leukocyte Esterase 500 A (NEG) /uL Urine RBC 8 H (0-1) /hpf Urine WBC 99 H (0-4) /hpf Ur Squamous Epith Cells < 1 (0-4) /hpf Ur Transition Epith Cell < 1 (0-2) /hpf Urine Bacteria Few A (0) /hpf Urine Mucus Few (0) /hpf Ur Culture Indicated? Yes - Radiology Data Radiology results reviewed: Yes I reviewed the patient's radiology results. Disposition Pt seen by [facility]/PA only: No Clinical Impression: UTI (urinary tract infection), CHF (congestive heart failure) Disposition: Xfer As Outpt/Obs ([facility]) Condition: Fair Referrals: Yahaira Perez DO [Primary Care Provider] - Time of Disposition: 18:00
--- NOTE | 2018-06-16 14:39 | Cat Scan Report ---
CLINICAL INFORMATION: Slurred speech as possible CVA COMPARISON: 12/03/2014 TECHNIQUE: 2.5 mm helical slices were obtained in the skull base to vertex. Following reconstruction, axial reformatted images were reviewed at bone and parenchymal windows. The exam was performed using radiation dose optimization techniques including, but not limited to, automated exposure control, adjustment of the mA and/or kV according to patient size and use of iterative reconstruction technique. FINDINGS: The ventricles, sulci, fissures, and cisterns are symmetrically large compatible with mild age-related atrophy - no extra-axial fluid collections or masses appreciated. Patchy chronic ischemic changes in the the cerebral white matter expectoration progressed. A 9 mm chronic lacunar infarct left thalamus and a 8 mm remote lacunar infarct in the right lentiform nucleus posterior limb right internal capsule seen - as before. A few remote lacunar infarcts seen throughout the remainder of the basal ganglia and deep white matter noted. There is no intracerebral hemorrhage, mass effect or edema. Bone windows show no osseous abnormality. IMPRESSION: Mild atrophy and chronic ischemic changes in the cerebral white matter and remote lacunar infarcts unchanged 2014. No acute findings Interpreted and Authenticated by: Jorge A Nur 06/16/18
[2018-06-16] MEDS ORDERED: LEVOFLOXACIN 750 MG/150 ML BAG IV ONE (15:36)
[2018-06-16 15:58] LABS: Appearance,Urine HAZY; Bacteria,Urine FEW /hpf (0); Bilirubin,Urine NEG (NEG); Color,Urine YELLOW; Glucose,Urine (UA) NEGATIVE (NEG); Leukocyte Esterase,Urine 500 /uL (NEG); Mucus,Urine FEW /hpf (0); Protein,Urine NEG (NEG); Specific Gravity,Urine 1.009 (1.000-1.035); Urine Blood 0.03 mg/dL (<0.03); Urine RBC 8 /hpf (0-1); Urine Squamous Epithelial Cell < 1 /hpf (0-4); Urine Transitional Epi Cells < 1 /hpf (0-2); Urine WBC 99 /hpf (0-4); Urobilinogen,Urine NEG (NEG)
[2018-06-16] MEDS ORDERED: 0.9 % SODIUM CHLORIDE 1,000 ML IV ONE (15:58)
--- NOTE | 2018-06-16 18:25 | Internal Med History&Physical ---
Medical - H&P: HPI Patient information: Note initiated : 06/16/18 at 6:21 pm Service Date, if different from initiated Date: [] Patient: Mireya Paul a 88 y/o F admitted on for Weakness. Chief Complaint: [] History of present illness: Ms. Paul is a 88 year old F with history of atrial fibrillation, diabetes, heart failure presents to the emergency room today twice for evaluation of weakness shortness of breath. The patient was not feeling well yesterday but was able to carry out her activities of daily living, this morning she was noted that she was not herself weak tired and short of breath on minimal exertion. She denied any chest pain, cough fever chills. The patient was seen in the ED earlier today and diagnosed with mild CHF, she had no increased oxygen needs at that time was treated with diuretics and discharged back home. After going back home the patient after getting in the house was very weak, unable to do much inside the house her son noted that he had to literally carry her back to the hospital. He is very concerned that patient lives alone and will not be able to care for himself. On presentation to the ER again the patient was afebrile temperature 97.3, heart rate ranged from 83 239, blood pressure 132/89 and saturation of 85%, needing 2 L of oxygen to maintain more than 90. UA was suggestive of a UTI, patient was given levofloxacin and admitted to the hospital for further management. Patient's lab done today showed WBC count of 7.2, neutrophils 87% hemoglobin 1 3.3 platelets 166, sodium 135 potassium 4.0 creatinine 1.0 glucose 125 BNP 2864. Chest x-ray done today showed mild CHF. EKG shows lbbb and atrial fibrillation The patient denies any foul-smelling urine or burning urine, does have increased frequency of urination. The patient has chronic headaches, chronic blurring of vision from macular degeneration, she has abdominal pain a bandlike sensation in her abdomen which notes has been going on for many years, she denies nausea vomiting diarrhea denies any new joint pains denies any skin rashes denies any bleeding from anywhere. Given that the patient is very weak unable to care for herself, has somewhat increased oxygen needs, tachycardic from atrial fibrillation and possible UTI she is being admitted to the hospital for further management. All systems: reviewed and no additional remarkable complaints except as stated Medical - H&P: H Medical history: Medical History (Last Reviewed 04/11/18 @ 13:13 by Yahaira Perez DO) Constipation (Chronic) Hypertension, essential (Chronic) Arthritis (Chronic) Fracture of hip (Acute) Diabetes type 2, controlled (Chronic) CHF (congestive heart failure) (Chronic) Acute renal failure (ARF) (Acute) Parotid duct obstruction (Acute) Surgical history: Past Surgical History (Last Reviewed 04/11/18 @ 13:13 by Yahaira Perez DO) H/O knee surgery (Chronic) H/O shoulder surgery (Chronic) H/O shoulder surgery (Chronic) History of open reduction and internal fixation (ORIF) procedure (Chronic) H/O hysterectomy for benign disease (Resolved) History of cholecystectomy (Resolved) Pertinent family history: Family History (Last Reviewed 04/11/18 @ 13:13 by Yahaira Perez DO) Mother Arthritis Diabetes Sister Arthritis Diabetes Brother Diabetes Medical - H&P: Meds Home Medications Medication Instructions Recorded Confirmed Type Aspirin [Susan Chewable Aspirin] 81 mg PO DAILY 11/30/14 04/11/18 History polyethylene glycol 3350 17 gram 17 g PO QDAY #30 each 06/14/17 04/11/18 Rx oral powder packet Isosorbide Mononitrate [Imdur] 30 mg PO DAILY #30 tab.xl.24h 09/09/17 04/11/18 Rx Ondansetron [Zofran ODT] 4 mg SL Q4HP PRN #4 tab 02/20/18 04/11/18 Rx amlodipine 5 mg tablet 5 mg PO QDAY #90 tab 03/01/18 04/11/18 Rx furosemide 40 mg tablet 40 mg PO QDAY #90 tab 03/01/18 04/11/18 Rx losartan 100 mg tablet 100 mg PO QDAY #90 tab 03/01/18 04/11/18 Rx metformin 500 mg tablet 500 mg PO QDAY #90 tab 03/01/18 04/11/18 Rx carvedilol 25 mg tablet 25 mg PO BID #60 tab 05/25/18 Rx potassium chloride ER 10 mEq 10 meq PO BIDCC #180 tab 05/30/18 Rx tablet,extended release Allergies Allergy/AdvReac Type Severity Reaction Status Date / Time No Known Drug Allergies Allergy Verified 06/16/18 13:56 Medical - H&P: Exam - Constitutional Vitals: Temp Pulse Resp BP Pulse Ox 97.4 F 145 H 22 129/93 92 06/16/18 13:53 06/16/18 18:19 06/16/18 18:19 06/16/18 18:17 06/16/18 18:19 Exam: GENERAL: The patient is a well-developed, well-nourished in no apparent distress. Is alert and oriented x3. VITAL SIGNS: Reviewed and as noted elsewhere. HEENT: Head is normocephalic and atraumatic. Extraocular muscles are intact. Pupils are equal, round, and reactive to light. Nares appeared normal. Mouth appears any without lesions. Mucous membranes are moist. NECK: Normal to inspection, Supple, No lymphadenopathy or thyromegaly. LUNGS: Air entry equal on both sides, no wheezing, crackles or rhonchi noted. No accessory muscles of respiration HEART: tachycardic rate and rhythm irregular , S1 and S2 heard, distant heart sounds. ABDOMEN: Soft, nontender, and nondistended. Positive bowel sounds. No hepatosplenomegaly was noted. EXTREMITIES: No cyanosis, clubbing, rash, lesions , edema + NEUROLOGIC: Cranial nerves II through XII are grossly intact. Motor and Sensory System Grossly Intact PSYCHIATRIC: Normal affect, Normal Mood. Appropriate Behavior. SKIN: No ulceration or wounds noted, No jaundice, No rash noted. Medical - H&P: Reslt - Labs Labs: Cardiac Enzymes 06/16/18 Range/Units 15:33 Troponin T < 0.01 (0-0.03) ng/ml Urine 06/16/18 Range/Units 15:24 Urine Color Yellow Urine Appearance Hazy Urine pH 7.0 (5.0-9.0) Ur Specific [place] 1.009 (1.000-1.035) Urine Protein Neg (NEG) mg/dL Urine Glucose (UA) Negative (NEG) mg/dL Medical - H&P: A/P - Narrative A/P Narrative: A/P Acute Congestive heart failure -Mild lv dysfunction in echo 2014, mild , -precipitated by UTI -check echo -IV lasix 40 bidd for now Hypoxia -from chf, oxygen via nasal canula to keep osat > 90 UTI -Does not have much symptoms, however is definitely weak, -gloria treat with rocephin, urine culture pending DM -SSI insulin for glucose control HTN -resume home meds once verified, ATrial fibrillation with RVR -not on anticoagulation it seems, -beta blockers for rate control -monitor on tele -echo Weakness/Debility -from chf and UTI, -OT/PT eval, ST eval DVT on hep sq DNR code status Regular diet (given age will not restrict) Social History - Social History marital status: - Tobacco smoking status: Never smoker - Alcohol alcohol intake frequency: does not drink - Substance use substance use type: does not use
[2018-06-16] MEDS ORDERED: DEXTROSE 31 GM ORAL.SUSP PO PRN (19:44)
[2018-06-16] MEDS ORDERED: DEXTROSE 50% 50 ML VIAL IV PRN (19:44)
[2018-06-16] MEDS ORDERED: ONDANSETRON 4 MG/2 ML VIAL IV PRN (19:44)
[2018-06-16] MEDS ORDERED: NALOXONE HCL 0.4 MG/ML VIAL IV PRN (19:44)
[2018-06-16] MEDS ORDERED: cefTRIAXone 1 GM in DEXTROSE 5% IN WATER 50 ML IV SCH (19:44)
[2018-06-16] MEDS: INSULIN LISPRO 1 UNIT/0.01 ML UNIT SQ SCH (21:27)
[2018-06-16] MEDS ORDERED: FUROSEMIDE 40 MG/4 ML VIAL IV ONE (21:28)
[2018-06-16] MEDS: 0.9 % SODIUM CHLORIDE 10 ML SYRINGE IV SCH (21:28)
[2018-06-16] MEDS ORDERED: cefTRIAXone 1 GM VIAL ONE (21:28)
[2018-06-16] MEDS: FUROSEMIDE 40 MG/4 ML VIAL IV SCH (21:38)
[2018-06-16] MEDS: CARVEDILOL 12.5 MG TABLET PO SCH (21:46)
[2018-06-16] MEDS: HEPARIN 5,000 UNIT/ML VIAL SQ SCH (22:18)
[2018-06-17] MEDS: 0.9 % SODIUM CHLORIDE 10 ML SYRINGE IV SCH ×3 (05:43→21:04)
[2018-06-17 07:07] LABS: Basophils # (Auto) 0 K/mcL (0.0-0.3); Basophils % (Auto) 0.1 % (0.0-2.0); Eosinophils # (Auto) 0 K/mcL (0.0-0.7); Eosinophils % (Auto) 0 % (0.0-7.0); Granulocytes % (Auto) 84.3 % (38.0-78.0); Lymphocytes # (Auto) 0.6 K/mcL (1.5-4.8); Lymphocytes % (Auto) 8.4 % (15.5-49.0); Mean Cell Volume 89.6 fL (80.0-100.0); Mean Corpuscular HGB Conc 32.9 g/dL (31.0-36.0); Monocytes # (Auto) 0.5 K/mcL (0.1-0.9); Monocytes % (Auto) 7.2 % (1.0-12.0); Platelet Count 131 K/mcL (140-440); RBC 4.47 M/mcL (4.00-5.20); Red Cell Distribution Width 13.8 % (11.5-14.5)
[2018-06-17 07:30] LABS: ALT/SGPT 12 U/l (0-40); Albumin 3.4 gm/dL (3.2-5.2); Alkaline Phosphatase 70 U/L (39-117); Bilirubin,Direct < 0.2 mg/dL (0.0-0.3); Blood Urea Nitrogen 14 mg/dl (8-23); Gamma Glutamyl Transpeptidase 12 U/L (5-36); Uric Acid 5.1 mg/dL (2.5-8.0)
[2018-06-17] MEDS: INSULIN LISPRO 1 UNIT/0.01 ML UNIT SQ SCH ×4 (07:56→20:43)
--- NOTE | 2018-06-17 08:34 | XRay Report ---
CLINICAL INFORMATION: chf COMPARISON: 06/16/2018 FINDINGS: Moderate cardiomegaly is unchanged. Mediastinum is unremarkable. Pulmonary vessels have returned to normal caliber. Underlying chronic bronchitis changes noted. There is minor atelectasis right base IMPRESSION: Interval resolution CHF. Underlying chronic bronchitis and minor right basilar atelectasis Interpreted and Authenticated by: Jorge A Nur 06/17/18
[2018-06-17] MEDS: CARVEDILOL 12.5 MG TABLET PO SCH ×2 (08:52→16:52)
[2018-06-17] MEDS: POTASSIUM CHLORIDE 10 MEQ TABLET PO SCH ×2 (08:52→16:53)
[2018-06-17] MEDS: FUROSEMIDE 40 MG/4 ML VIAL IV SCH ×2 (08:52→16:53)
[2018-06-17] MEDS: HEPARIN 5,000 UNIT/ML VIAL SQ SCH ×2 (08:53→20:42)
[2018-06-17] MEDS: LOSARTAN 50 MG TABLET PO SCH (08:53)
[2018-06-17] MEDS: amLODIPine 5 MG TABLET PO SCH (08:53)
[2018-06-17] MEDS: ASPIRIN 81 MG TAB.CHEW PO SCH (08:53)
[2018-06-17] MEDS: cefTRIAXone 1 GM VIAL IV SCH (11:00)
[2018-06-17] MEDS: BENZOCAINE/MENTHOL 1 LOZENGE PO PRN ×2 (11:01→18:17)
[2018-06-17] MEDS ORDERED: MAGNESIUM SULFATE 2 GM/50 ML BAG IV ONE (13:20)
--- NOTE | 2018-06-17 13:29 | Internal Med Progress Note ---
Medical - PN: Subj Patient information: Note initiated : 06/17/18 at 1:26 pm Service Date, if different from initiated Date: [] Patient: Mireya Paul a 88 y/o F admitted on 06/16/18 for Weakness. Chief Complaint: [] Interval history: Ms. Paul is a 88 year old F with history of atrial fibrillation, diabetes, h eart failure presents to the emergency room today twice for evaluation of weakness shortness of breath. The patient was not feeling well yesterday but was able to carry out her activities of daily living, this morning she was noted that she was not herself weak tired and short of breath on minimal exertion. She denied any chest pain, cough fever chills. The patient was seen in the ED earlier today and diagnosed with mild CHF, she had no increased oxygen needs at that time was treated with diuretics and discharged back home. After going back home the patient after getting in the house was very weak, unable to do much inside the house her son noted that he had to literally carry her back to the hospital. He is very concerned that patient lives alone and will not be able to care for himself. On presentation to the ER again the patient was afebrile temperature 97.3, heart rate ranged from 83 239, blood pressure 132/89 and saturation of 85%, needing 2 L of oxygen to maintain more than 90. UA was suggestive of a UTI, patient was given levofloxacin and admitted to the hospital for further management. Patient's lab done today showed WBC count of 7.2, neutrophils 87% hemoglobin 13. 3 platelets 166, sodium 135 potassium 4.0 creatinine 1.0 glucose 125 BNP 2864. Chest x-ray done today showed mild CHF. EKG shows lbbb and atrial fibrillation The patient denies any foul-smelling urine or burning urine, does have increased frequency of urination. The patient has chronic headaches, chronic blurring of vision from macular degeneration, she has abdominal pain a bandlike sensation i n her abdomen which notes has been going on for many years, she denies nausea vomiting diarrhea denies any new joint pains denies any skin rashes denies any bleeding from anywhere. Given that the patient is very weak unable to care for herself, has somewhat increased oxygen needs, tachycardic from atrial fibrillation and possible UTI she is being admitted to the hospital for further management. 06/17 Patient seen examined, feels better than yesterday no new complaints or concerns low grade temp noted, no new overnight issues. Pertinent ROS: Denies headache, dizziness Denies chest pain, palpitations Denies cough or shortness of breath Denies abdominal pain, nausea or vomiting. - Constitutional Vitals: Vital Signs Temp Pulse Resp BP Pulse Ox 98.2 F 111 H 20 129/69 91 06/17/18 11:51 06/16/18 19:55 06/17/18 11:51 06/17/18 11:51 06/17/18 11:51 Period Temp Pulse Resp BP Sys/Mayen Pulse Ox Last 24 Hr 97.4 F-100.1 F 62-145 20-44 115-147/54-114 83-98 Intake and Output 06/16/18 06/17/18 06/17/18 21:59 05:59 13:59 Intake Total 1150 300 Output Total 1250 Balance 1150 -950 Weight 157 lb 157 lb Patient Weight 06/18/18 05:59 Weight 157 lb Intake & Output: Intake & Output 06/16/18 06/17/18 06/17/18 21:59 05:59 13:59 Intake Total 1150 300 Output Total 1250 Balance 1150 -950 Weight 157 lb 157 lb Intake: IV 1150 Sodium Chloride 0.9% 1,000 ml @ 1000 Wide Open IV BOLUS ONE Rx#: [id number] Oral 300 Output: Urine Catheter Amount 1250 Other: Percent of Meal Consumed 50% Feeding Ability Independent Urine Appearance Clear Uretheral (Mueller) Clear Urine Color Bright Yellow Uretheral (Muleler) Bright Yellow Urine Odor Uretheral (Mueller) Normal Stool Size Small Stool Color Brown Stool Consistency Formed # Bowel Movements 0 Exam: Constitutional; Afebrile, cooperative, alert, not in distress. Respiratory system: Air Entry equal on both sides, No crackles or wheezing, no rhonchi. CVS- Rate rhythm regular, S1,S2 heard, no gallop, no rub. Abdomen- Soft nontender abdomen, no organomegaly, no tenderness, no guarding or rigidity, CENTRAL STORES ATTENDANT- AOOx3, moving all extremities, no gross focal deficit noted. Medical - PN: Obj Da - Labs CBC & Chem 7: 06/17/18 03:45 06/17/18 03:45 Labs: Abnormal Lab Results 06/17/18 06/17/18 06/16/18 03:45 03:45 15:24 Plt Count 131 L Gran % 84.3 H Lymph % (Auto) 8.4 L Lymph # (Auto) 0.6 L Chloride 94 L Lactate Dehydrogenase 326 H Urine Occult Blood 0.03 A Ur Leukocyte Esterase 500 A Urine RBC 8 H Urine WBC 99 H Urine Bacteria Few A Meds: Medications Acetaminophen (Tylenol) 650 mg PO Q6HP PRN PRN Reason: PAIN/FEVER > 101 Amlodipine Besylate (Norvasc) 5 mg PO QDAY [facility] Last Admin: 06/17/18 08:53 Dose: 5 mg Documented by: Aspirin (Aspirin) 81 mg PO DAILY [facility] Last Admin: 06/17/18 08:53 Dose: 81 mg Documented by: Carvedilol (Coreg) 25 mg PO BIDCC [facility] Last Admin: 06/17/18 08:52 Dose: 25 mg Documented by: Ceftriaxone Sodium (Rocephin) 1 gm IV Q24H [facility] Last Admin: 06/17/18 11:00 Dose: 1 gm Documented by: Dextrose (Dextrose 50%) 0 ml IV UD PRN PRN Reason: Hypoglycemia Diagnostic Test (Pha) (Accu-Chek) 1 each FS [facility] Last Admin: 06/17/18 07:56 Dose: 1 each Documented by: Furosemide (Lasix) 40 mg IV BIDD [facility] Last Admin: 06/17/18 08:52 Dose: 40 mg Documented by: Glucose (Insta-Glucose) 15 gm PO PRN PRN PRN Reason: Hypoglycemia Heparin Sodium (Porcine) (Heparin) 5,000 unit SQ Q12 [facility] Last Admin: 06/17/18 08:53 Dose: 5,000 unit Documented by: Magnesium Sulfate (Magnesium Sulfate) 2 gm in 50 mls @ 50 mls/hr IV ONCE ONE Stop: 06/17/18 14:19 Insulin Human Lispro (Humalog) 0 unit SQ [facility]; Protocol Last Admin: 06/17/18 07:56 Dose: Not Given Documented by: Losartan Potassium (Cozaar) 100 mg PO DAILY [facility] Last Admin: 06/17/18 08:53 Dose: 100 mg Documented by: Naloxone HCl (Narcan) 0.1 mg IV Q2MIN PRN PRN Reason: Opiate Reversal Ondansetron HCl (Zofran) 4 mg IV Q4HP PRN PRN Reason: Nausea And Vomiting Potassium Chloride (Kdur) 10 meq PO BIDCC [facility] Last Admin: 06/17/18 08:52 Dose: 10 meq Documented by: Sodium Chloride (Saline Flush) 10 ml IV Q8 [facility] Last Admin: 06/17/18 05:43 Dose: 10 ml Documented by: Throat Lozenges (Cepacol) 1 lozenge PO PRN PRN PRN Reason: Sore Throat Last Admin: 06/17/18 11:01 Dose: 1 lozenge Documented by: Medical - PN: A/P - Time Spent With Patient Total time spent is greater than 50% in coordination of care (as documented) at patient's floor/unit and/or counseling patient: - Narrative A/P Narrative: A/P Acute Congestive heart failure -Mild lv dysfunction in echo 2014, mild , -precipitated by UTI -check echo, report pending. -IV lasix 40 bidd for now Hypoxia -from chf, oxygen via nasal canula to keep osat > 90 -wean off oxygen as tolerated. UTI -Does not have much symptoms, however is definitely weak, -gloria treat with rocephin, urine culture pending, initial culture is gram neg bacillus. DM -SSI insulin for glucose control HTN -resume home meds once verified, ATrial fibrillation with RVR -not on anticoagulation it seems, -beta blockers for rate control -monitor on tele, rate better today -echo Weakness/Debility -from chf and UTI, -OT/PT eval, ST eval DVT on hep sq DNR code status Regular diet (given age will not restrict) Medical - PN: Qual - VTE Deep Vein Thrombosis/Pulmonary Embolism Present on Admission: No
[2018-06-18] MEDS: ACETAMINOPHEN 325 MG TABLET PO PRN ×2 (04:20→23:58)
[2018-06-18] MEDS: 0.9 % SODIUM CHLORIDE 10 ML SYRINGE IV SCH ×5 (05:41→20:44)
[2018-06-18 05:56] LABS: ALT/SGPT 12 U/l (0-40); Albumin 3.2 gm/dL (3.2-5.2); Albumin/Globulin Ratio 1.1 (1.0-2.3); Alkaline Phosphatase 61 U/L (39-117); Bilirubin,Direct < 0.2 mg/dL (0.0-0.3); Blood Urea Nitrogen 18 mg/dl (8-23); Gamma Glutamyl Transpeptidase 10 U/L (5-36); Uric Acid 5.5 mg/dL (2.5-8.0)
[2018-06-18 06:04] LABS: Basophils # (Auto) 0 K/mcL (0.0-0.3); Basophils % (Auto) 0.3 % (0.0-2.0); Eosinophils # (Auto) 0 K/mcL (0.0-0.7); Eosinophils % (Auto) 0.2 % (0.0-7.0); Granulocytes % (Auto) 76.4 % (38.0-78.0); Lymphocytes # (Auto) 0.8 K/mcL (1.5-4.8); Lymphocytes % (Auto) 13.7 % (15.5-49.0); Monocytes # (Auto) 0.5 K/mcL (0.1-0.9); Monocytes % (Auto) 9.4 % (1.0-12.0); Platelet Count 137 K/mcL (140-440); RBC 4.22 M/mcL (4.00-5.20); Red Cell Distribution Width 13.6 % (11.5-14.5)
[2018-06-18] MEDS: INSULIN LISPRO 1 UNIT/0.01 ML UNIT SQ SCH (07:43)
[2018-06-18] MEDS: CARVEDILOL 12.5 MG TABLET PO SCH ×2 (08:08→19:15)
[2018-06-18] MEDS: POTASSIUM CHLORIDE 10 MEQ TABLET PO SCH ×2 (08:08→19:15)
[2018-06-18] MEDS: FUROSEMIDE 40 MG/4 ML VIAL IV SCH ×2 (08:09→15:51)
[2018-06-18] MEDS: ASPIRIN 81 MG TAB.CHEW PO SCH (09:05)
[2018-06-18] MEDS: cefTRIAXone 1 GM VIAL IV SCH (09:05)
[2018-06-18] MEDS: amLODIPine 5 MG TABLET PO SCH (09:05)
[2018-06-18] MEDS: HEPARIN 5,000 UNIT/ML VIAL SQ SCH ×2 (09:05→20:44)
[2018-06-18] MEDS: LOSARTAN 50 MG TABLET PO SCH (09:05)
--- NOTE | 2018-06-18 10:24 | Internal Med Progress Note ---
Medical - PN: Subj Patient information: Note initiated : 06/18/18 at 10:21 am Service Date, if different from initiated Date: [] Patient: Mireya Paul a 88 y/o F admitted on 06/16/18 for Weakness. Chief Complaint: [] Interval history: Ms. Paul is a 88 year old F with history of atrial fibrillation, diabetes, heart failure presents to the emergency room today twice for evaluation of weakness shortness of breath. The patient was not feeling well yesterday but was able to carry out her activities of daily living, this morning she was noted that she was not herself weak tired and short of breath on minimal exertion. She denied any chest pain, cough fever chills. The patient was seen in the ED earlier today and diagnosed with mild CHF, she had no increased oxygen needs at that time was treated with diuretics and discharged back home. After going back home the patient after getting in the house was very weak, unable to do much inside the house her son noted that he had to literally carry her back to the hospital. He is very concerned that patient lives alone and will not be able to care for himself. On presentation to the ER again the patient was afebrile temperature 97.3, heart rate ranged from 83 239, blood pressure 132/89 and saturation of 85%, needing 2 L of oxygen to maintain more than 90. UA was suggestive of a UTI, patient was given levofloxacin and admitted to the hospital for further management. Patient's lab done today showed WBC count of 7.2, neutrophils 87% hemoglobin 13 .3 platelets 166, sodium 135 potassium 4.0 creatinine 1.0 glucose 125 BNP 2864. Chest x-ray done today showed mild CHF. EKG shows lbbb and atrial fibrillation The patient denies any foul-smelling urine or burning urine, does have increased frequency of urination. The patient has chronic headaches, chronic blurring of vision from macular degeneration, she has abdominal pain a bandlike sensation in her abdomen which notes has been going on for many years, she denies nausea vomiting diarrhea denies any new joint pains denies any skin rashes denies any bleeding from anywhere. Given that the patient is very weak unable to care for herself, has somewhat increased oxygen needs, tachycardic from atrial fibrillation and possible UTI she is being admitted to the hospital for further management. 06/17 Patient seen examined, feels better than yesterday no new complaints or concerns low grade temp noted, no new overnight issues. 06/18 Patient seen examined, no acute issues tolerating po meds well on 2 L oxygen Febrile to 102 Echo shows severe chf, 20-25% lvef Pertinent ROS: Denies headache, dizziness Denies chest pain, palpitations Denies cough or shortness of breath Denies abdominal pain, nausea or vomiting. - Constitutional Vitals: Vital Signs Temp Pulse Resp BP Pulse Ox 98.2 F 88 20 110/56 90 06/18/18 07:50 06/17/18 18:43 06/18/18 07:50 06/18/18 07:50 06/18/18 07:50 Period Temp Pulse Resp BP Sys/Mayen Pulse Ox Last 24 Hr 98.2 F-101.2 F 88-88 20-32 110-136/56-69 87-98 Intake and Output 06/17/18 06/18/18 06/18/18 21:59 05:59 13:59 Intake Total 410 75 400 Output Total 550 700 Balance -140 -625 400 Weight 158 lb 4.8 oz Intake & Output: Intake & Output 06/17/18 06/18/18 06/18/18 21:59 05:59 13:59 Intake Total 410 75 400 Output Total 550 700 Balance -140 -625 400 Weight 158 lb 4.8 oz Intake: IV 50 Oral 360 75 400 Output: Urine Catheter Amount 550 700 Other: Meal Dinner Percent of Meal Consumed 50% 50% Feeding Ability Total Assistance Needs Supervision Urine Appearance Clear Uretheral (Mueller) Clear Urine Color Dark Yellow Uretheral (Mueller) Straw Urine Odor Normal Stool Size Large Large Stool Color Brown Brown Stool Consistency Formed Soft # Bowel Movements 1 Exam: Constitutional; Afebrile, cooperative, alert, not in distress. Respiratory system: Air Entry equal on both sides, bibasilar crackles, CVS- Rate rhythm irregular, S1,S2 heard, no gallop, no rub. Abdomen- Soft nontender abdomen, no organomegaly, no tenderness, no guarding or rigidity, PROGRESSIVE ASSEMBLER AND FITTER- AOOx3, moving all extremities, no gross focal deficit noted. Medical - PN: Obj Da - Labs CBC & Chem 7: 06/18/18 03:55 06/18/18 03:55 Labs: Abnormal Lab Results 06/18/18 06/18/18 06/17/18 03:55 03:55 03:45 Plt Count 137 L Gran % Lymph % (Auto) 13.7 L Lymph # (Auto) 0.8 L Chloride 93 L 94 L Creatinine 1.2 H Calcium 8.2 L Lactate Dehydrogenase 326 H Urine Occult Blood Ur Leukocyte Esterase Urine RBC Urine WBC Urine Bacteria 06/17/18 06/16/18 03:45 15:24 Plt Count 131 L Gran % 84.3 H Lymph % (Auto) 8.4 L Lymph # (Auto) 0.6 L Chloride Creatinine Calcium Lactate Dehydrogenase Urine Occult Blood 0.03 A Ur Leukocyte Esterase 500 A Urine RBC 8 H Urine WBC 99 H Urine Bacteria Few A Meds: Medications Acetaminophen (Tylenol) 650 mg PO Q6HP PRN PRN Reason: PAIN/FEVER > 101 Last Admin: 06/18/18 04:20 Dose: 650 mg Documented by: Amlodipine Besylate (Norvasc) 5 mg PO QDAY [facility] Last Admin: 06/18/18 09:05 Dose: 5 mg Documented by: Aspirin (Aspirin) 81 mg PO DAILY [facility] Last Admin: 06/18/18 09:05 Dose: 81 mg Documented by: Carvedilol (Coreg) 25 mg PO BIDCC [facility] Last Admin: 06/18/18 08:08 Dose: 25 mg Documented by: Ceftriaxone Sodium (Rocephin) 1 gm IV Q24H [facility] Last Admin: 06/18/18 09:05 Dose: 1 gm Documented by: Dextrose (Dextrose 50%) 0 ml IV UD PRN PRN Reason: Hypoglycemia Diagnostic Test (Pha) (Accu-Chek) 1 each FS [facility] Last Admin: 06/18/18 07:43 Dose: 1 each Documented by: Furosemide (Lasix) 40 mg IV BIDD [facility] Last Admin: 06/18/18 08:09 Dose: 40 mg Documented by: Glucose (Insta-Glucose) 15 gm PO PRN PRN PRN Reason: Hypoglycemia Heparin Sodium (Porcine) (Heparin) 5,000 unit SQ Q12 [facility] Last Admin: 06/18/18 09:05 Dose: 5,000 unit Documented by: Insulin Human Lispro (Humalog) 0 unit SQ [facility]; Protocol Last Admin: 06/18/18 07:43 Dose: Not Given Documented by: Losartan Potassium (Cozaar) 100 mg PO DAILY [facility] Last Admin: 06/18/18 09:05 Dose: 100 mg Documented by: Naloxone HCl (Narcan) 0.1 mg IV Q2MIN PRN PRN Reason: Opiate Reversal Ondansetron HCl (Zofran) 4 mg IV Q4HP PRN PRN Reason: Nausea And Vomiting Potassium Chloride (Kdur) 10 meq PO BIDCC [facility] Last Admin: 06/18/18 08:08 Dose: 10 meq Documented by: Sodium Chloride (Saline Flush) 10 ml IV Q8 [facility] Last Admin: 06/18/18 09:06 Dose: 10 ml Documented by: Throat Lozenges (Cepacol) 1 lozenge PO PRN PRN PRN Reason: Sore Throat Last Admin: 06/17/18 18:17 Dose: 1 lozenge Documented by: Medical - PN: A/P - Time Spent With Patient Total time spent is greater than 50% in coordination of care (as documented) at patient's floor/unit and/or counseling patient: - Narrative A/P Narrative: A/P Acute Congestive heart failure -Mild lv dysfunction in echo 2014, mild , -echo 2019 is now showing severe lvef decline, 20-25% -precipitated by UTI -outaptient cardiology follow up -IV lasix 40 bidd for now Hypoxia/ Acute hypoxic respiratory failure -from chf, oxygen via nasal canula to keep osat > 90 -wean off oxygen as tolerated. -aggresive pulmonary toilet Fever -102, cultures sent, due to UTI, ? ATelectasis, -monitor, if persisits, will get [place] CT UTI -Does not have much symptoms, however is definitely weak, -gloria treat with rocephin, urine culture pending, initial culture is gram neg bacillus. DM -glucose levels well controlled,d d/c ssi insulin for now. HTN -resume home meds once verified, ATrial fibrillation with RVR -not on anticoagulation it seems, -beta blockers for rate control -monitor on tele, rate better today - Weakness/Debility -from chf and UTI, -OT/PT eval, ST eval DVT on hep sq DNR code status Regular diet (given age will not restrict) Medical - PN: Qual - VTE Deep Vein Thrombosis/Pulmonary Embolism Present on Admission: No
[2018-06-18] MEDS ORDERED: IPRATROPIUM/ALBUTEROL 3 ML AMPUL.NEB NEB ONE (21:10)
[2018-06-18] MEDS: IPRATROPIUM/ALBUTEROL 3 ML AMPUL.NEB NEB SCH (21:13)
[2018-06-19] MEDS: IPRATROPIUM/ALBUTEROL 3 ML AMPUL.NEB NEB SCH ×6 (02:52→23:52)
[2018-06-19 05:21] LABS: Basophils # (Auto) 0 K/mcL (0.0-0.3); Basophils % (Auto) 0.3 % (0.0-2.0); Eosinophils # (Auto) 0 K/mcL (0.0-0.7); Eosinophils % (Auto) 0.5 % (0.0-7.0); Granulocytes % (Auto) 56.1 % (38.0-78.0); Lymphocytes % (Auto) 27.9 % (15.5-49.0); Mean Cell Volume 89.8 fL (80.0-100.0); Mean Corpuscular HGB Conc 32.9 g/dL (31.0-36.0); Monocytes # (Auto) 0.6 K/mcL (0.1-0.9); Monocytes % (Auto) 15.2 % (1.0-12.0); Platelet Count 121 K/mcL (140-440); RBC 4.17 M/mcL (4.00-5.20); Red Cell Distribution Width 13.8 % (11.5-14.5)
[2018-06-19 05:36] LABS: ALT/SGPT 14 U/l (0-40); Albumin 2.9 gm/dL (3.2-5.2); Albumin/Globulin Ratio 0.9 (1.0-2.3); Alkaline Phosphatase 56 U/L (39-117); Bilirubin,Direct < 0.2 mg/dL (0.0-0.3); Blood Urea Nitrogen 29 mg/dl (8-23); Gamma Glutamyl Transpeptidase 11 U/L (5-36); Uric Acid 6.6 mg/dL (2.5-8.0)
[2018-06-19] MEDS: 0.9 % SODIUM CHLORIDE 10 ML SYRINGE IV SCH ×6 (05:48→21:15)
[2018-06-19] MEDS: CARVEDILOL 12.5 MG TABLET PO SCH ×2 (07:57→17:31)
[2018-06-19] MEDS: FUROSEMIDE 40 MG/4 ML VIAL IV SCH ×2 (07:58→16:09)
[2018-06-19] MEDS: POTASSIUM CHLORIDE 10 MEQ TABLET PO SCH ×2 (07:58→17:31)
[2018-06-19] MEDS: amLODIPine 5 MG TABLET PO SCH (09:29)
[2018-06-19] MEDS: LOSARTAN 50 MG TABLET PO SCH (09:29)
[2018-06-19] MEDS: ASPIRIN 81 MG TAB.CHEW PO SCH (09:30)
--- NOTE | 2018-06-19 09:31 | Internal Med Progress Note ---
Medical - PN: Subj Patient information: Note initiated : 06/19/18 at 9:29 am Service Date, if different from initiated Date: [] Patient: Mireya Paul a 88 y/o F admitted on 06/16/18 for Weakness. Chief Complaint: [] Interval history: Ms. Paul is a 88 year old F with history of atrial fibrillation, diabetes, h eart failure presents to the emergency room today twice for evaluation of weakness shortness of breath. The patient was not feeling well yesterday but was able to carry out her activities of daily living, this morning she was noted that she was not herself weak tired and short of breath on minimal exertion. She denied any chest pain, cough fever chills. The patient was seen in the ED earlier today and diagnosed with mild CHF, she had no increased oxygen needs at that time was treated with diuretics and discharged back home. After going back home the patient after getting in the house was very weak, unable to do much inside the house her son noted that he had to literally carry her back to the hospital. He is very concerned that patient lives alone and will not be able to care for himself. On presentation to the ER again the patient was afebrile temperature 97.3, heart rate ranged from 83 239, blood pressure 132/89 and saturation of 85%, needing 2 L of oxygen to maintain more than 90. UA was suggestive of a UTI, patient was given levofloxacin and admitted to the hospital for further management. Patient's lab done today showed WBC count of 7.2, neutrophils 87% hemoglobin 13. 3 platelets 166, sodium 135 potassium 4.0 creatinine 1.0 glucose 125 BNP 2864. Chest x-ray done today showed mild CHF. EKG shows lbbb and atrial fibrillation The patient denies any foul-smelling urine or burning urine, does have increased frequency of urination. The patient has chronic headaches, chronic blurring of vision from macular degeneration, she has abdominal pain a bandlike sensation i n her abdomen which notes has been going on for many years, she denies nausea vomiting diarrhea denies any new joint pains denies any skin rashes denies any bleeding from anywhere. Given that the patient is very weak unable to care for herself, has somewhat increased oxygen needs, tachycardic from atrial fibrillation and possible UTI she is being admitted to the hospital for further management. 06/17 Patient seen examined, feels better than yesterday no new complaints or concerns low grade temp noted, no new overnight issues. 06/18 Patient seen examined, no acute issues tolerating po meds well on 2 L oxygen Febrile to 102 Echo shows severe chf, 20-25% lvef 06/19 patient seen examined, no acute issues, feeling much better today remains on oxygen fever curve improving Pertinent ROS: Denies headache, dizziness Denies chest pain, palpitations improving shortness of breath Denies abdominal pain, nausea or vomiting. - Constitutional Vitals: Vital Signs Temp Pulse Resp BP Pulse Ox 98.3 F 84 18 124/53 100 06/19/18 06:35 06/19/18 07:35 06/19/18 07:35 06/19/18 06:35 06/19/18 07:35 Period Temp Pulse Resp BP Sys/Mayen Pulse Ox Last 24 Hr 97.8 F-100.5 F 72-84 18-24 99-130/53-75 85-100 Intake and Output 06/18/18 06/19/18 06/19/18 21:59 05:59 13:59 Intake Total 500 350 Output Total 300 1075 Balance 200 -725 Weight 157 lb 3.2 oz Intake & Output: Intake & Output 06/18/18 06/19/18 06/19/18 21:59 05:59 13:59 Intake Total 500 350 Output Total 300 1075 Balance 200 -725 Weight 157 lb 3.2 oz Intake: Oral 500 350 Output: Urine Catheter Amount 300 1075 Other: Meal Dinner Percent of Meal Consumed 50% Feeding Ability Independent Urine Appearance Clear Clear Small Blood Clots Uretheral (Mueller) Clear Urine Color Bright Yellow Straw Uretheral (Mueller) Bright Yellow Urine Odor Normal Normal Exam: Constitutional; Afebrile, cooperative, alert, not in distress. Respiratory system: Air Entry equal on both sides, No crackles or wheezing, no rhonchi. CVS- Rate rhythm regular, S1,S2 heard, no gallop, no rub. Abdomen- Soft nontender abdomen, no organomegaly, no tenderness, no guarding or rigidity, OFFICE ENGINEER- AOOx3, moving all extremities, no gross focal deficit noted. Medical - PN: Obj Da - Labs CBC & Chem 7: 06/19/18 03:55 06/19/18 03:55 Labs: Abnormal Lab Results 06/19/18 06/19/18 06/18/18 03:55 03:55 03:55 WBC 3.7 L Plt Count 121 L Gran % Lymph % (Auto) Carson % (Auto) 15.2 H Lymph # (Auto) 1.0 L Sodium 132 L Chloride 94 L 93 L BUN 29 H Creatinine 1.2 H Calcium 8.0 L 8.2 L Lactate Dehydrogenase Albumin 2.9 L Albumin/Globulin Ratio 0.9 L Urine Occult Blood Ur Leukocyte Esterase Urine RBC Urine WBC Urine Bacteria 06/18/18 06/17/18 06/17/18 03:55 03:45 03:45 WBC Plt Count 137 L 131 L Gran % 84.3 H Lymph % (Auto) 13.7 L 8.4 L Carson % (Auto) Lymph # (Auto) 0.8 L 0.6 L Sodium Chloride 94 L BUN Creatinine Calcium Lactate Dehydrogenase 326 H Albumin Albumin/Globulin Ratio Urine Occult Blood Ur Leukocyte Esterase Urine RBC Urine WBC Urine Bacteria 06/16/18 15:24 WBC Plt Count Gran % Lymph % (Auto) Carson % (Auto) Lymph # (Auto) Sodium Chloride BUN Creatinine Calcium Lactate Dehydrogenase Albumin Albumin/Globulin Ratio Urine Occult Blood 0.03 A Ur Leukocyte Esterase 500 A Urine RBC 8 H Urine WBC 99 H Urine Bacteria Few A Meds: Medications Acetaminophen (Tylenol) 650 mg PO Q6HP PRN PRN Reason: PAIN/FEVER > 101 Last Admin: 06/18/18 23:58 Dose: 650 mg Documented by: Albuterol/Ipratropium (Duoneb) 3 ml NEB Q4HRT [facility] Last Admin: 06/19/18 07:33 Dose: 3 ml Documented by: Amlodipine Besylate (Norvasc) 5 mg PO QDAY [facility] Last Admin: 06/18/18 09:05 Dose: 5 mg Documented by: Aspirin (Aspirin) 81 mg PO DAILY [facility] Last Admin: 06/18/18 09:05 Dose: 81 mg Documented by: Carvedilol (Coreg) 25 mg PO BIDCC [facility] Last Admin: 06/19/18 07:57 Dose: 25 mg Documented by: Ceftriaxone Sodium (Rocephin) 1 gm IV Q24H [facility] Last Admin: 06/18/18 09:05 Dose: 1 gm Documented by: Furosemide (Lasix) 40 mg IV BIDD [facility] Last Admin: 06/19/18 07:58 Dose: 40 mg Documented by: Heparin Sodium (Porcine) (Heparin) 5,000 unit SQ Q12 [facility] Last Admin: 06/18/18 20:44 Dose: 5,000 unit Documented by: Losartan Potassium (Cozaar) 100 mg PO DAILY [facility] Last Admin: 06/18/18 09:05 Dose: 100 mg Documented by: Naloxone HCl (Narcan) 0.1 mg IV Q2MIN PRN PRN Reason: Opiate Reversal Ondansetron HCl (Zofran) 4 mg IV Q4HP PRN PRN Reason: Nausea And Vomiting Potassium Chloride (Kdur) 10 meq PO BIDCC [facility] Last Admin: 06/19/18 07:58 Dose: 10 meq Documented by: Sodium Chloride (Saline Flush) 10 ml IV Q8 [facility] Last Admin: 06/19/18 07:59 Dose: 10 ml Documented by: Throat Lozenges (Cepacol) 1 lozenge PO PRN PRN PRN Reason: Sore Throat Last Admin: 06/17/18 18:17 Dose: 1 lozenge Documented by: Medical - PN: A/P - Time Spent With Patient Total time spent is greater than 50% in coordination of care (as documented) at patient's floor/unit and/or counseling patient: - Narrative A/P Narrative: A/P Acute Congestive heart failure, Systolic -Mild lv dysfunction in echo 2014, mild , -echo 2019 is now showing severe lvef decline, 20-25% -precipitated by UTI -outaptient cardiology follow up / Seems has seen Dr Kowalski before. -IV lasix 40 bidd for now Hypoxia/ Acute hypoxic respiratory failure -from chf, oxygen via nasal canula to keep osat > 90 -wean off oxygen as tolerated. -aggressive pulmonary toilet Fever -fever curve improving due to UTI, pt clinically improving -continue to monitor UTI -urine culture is klebsiella, sensitive to rocephin, continue same. DM -glucose levels well controlled,d d/c ssi insulin for now. HTN -resume home meds once verified, ATrial fibrillation with RVR -not on anticoagulation it seems, -beta blockers for rate control -monitor on tele, rate better today -Outpatient cardiology follow up. Weakness/Debility -from chf and UTI, -OT/PT eval, ST eval DVT on hep sq DNR code status Regular diet (given age will not restrict) Medical - PN: Qual - VTE Deep Vein Thrombosis/Pulmonary Embolism Present on Admission: No
[2018-06-19] MEDS: HEPARIN 5,000 UNIT/ML VIAL SQ SCH ×2 (09:33→21:15)
[2018-06-19] MEDS: cefTRIAXone 1 GM VIAL IV SCH (09:36)
--- NOTE | 2018-06-19 16:58 | Internal Med Progress Note ---
Medical - PN: Subj Patient information: Note initiated : 06/19/18 at 4:49 pm Service Date, if different from initiated Date: [] Patient: Mireya Paul a 88 y/o F admitted on 06/16/18 for Weakness. Chief Complaint: [] Interval history: Ms. Paul is a 88 year old F with history of atrial fibrillation, diabetes, heart failure presents to the emergency room today twice for evaluation of weakness shortness of breath. The patient was not feeling well yesterday but was able to carry out her activities of daily living, this morning she was noted that she was not herself weak tired and short of breath on minimal exertion. She denied any chest pain, cough fever chills. The patient was seen in the ED earlier today and diagnosed with mild CHF, she had no increased oxygen needs at that time was treated with diuretics and discharged back home. After going back home the patient after getting in the house was very weak, unable to do much inside the house her son noted that he had to literally carry her back to the hospital. He is very concerned that patient lives alone and will not be able to care for himself. On presentation to the ER again the patient was afebrile temperature 97.3, heart rate ranged from 83 239, blood pressure 132/89 and saturation of 85%, needing 2 L of oxygen to maintain more than 90. UA was suggestive of a UTI, patient was given levofloxacin and admitted to the hospital for further management. Patient's lab done today showed WBC count of 7.2, neutrophils 87% hemoglobin 13 .3 platelets 166, sodium 135 potassium 4.0 creatinine 1.0 glucose 125 BNP 2864. Chest x-ray done today showed mild CHF. EKG shows lbbb and atrial fibrillation The patient denies any foul-smelling urine or burning urine, does have increased frequency of urination. The patient has chronic headaches, chronic blurring of vision from macular degeneration, she has abdominal pain a bandlike sensation in her abdomen which notes has been going on for many years, she denies nausea vomiting diarrhea denies any new joint pains denies any skin rashes denies any bleeding from anywhere. Given that the patient is very weak unable to care for herself, has somewhat increased oxygen needs, tachycardic from atrial fibrillation and possible UTI she is being admitted to the hospital for further management. 06/17 Patient seen examined, feels better than yesterday no new complaints or concerns low grade temp noted, no new overnight issues. 06/18 Patient seen examined, no acute issues tolerating po meds well on 2 L oxygen Febrile to 102 Echo shows severe chf, 20-25% lvef 06/19 patient seen examined, no acute issues, feeling much better today remains on oxygen fever curve improving 06/20 - Constitutional Vitals: Vital Signs Temp Pulse Resp BP Pulse Ox 97.5 F 74 18 103/56 95 06/19/18 13:10 06/19/18 15:35 06/19/18 15:35 06/19/18 13:10 06/19/18 15:35 Period Temp Pulse Resp BP Sys/Mayen Pulse Ox Last 24 Hr 97.5 F-100.5 F 71-84 - 103-130/53-75 85-100 Intake and Output 06/19/18 06/19/18 06/19/18 05:59 13:59 21:59 Intake Total 350 500 120 Output Total 1075 600 Balance -725 500 -480 Intake & Output: Intake & Output 06/19/18 06/19/18 06/19/18 05:59 13:59 21:59 Intake Total 350 500 120 Output Total 1075 600 Balance -725 500 -480 Intake: Oral 350 500 120 Output: Urine Catheter Amount 1075 600 Other: Meal Breakfast Lunch Percent of Meal Consumed 75% 75% Feeding Ability Independent Independent Urine Appearance Clear Clear Small Blood Clots Urine Color Straw Dark Yellow Urine Odor Normal Normal Exam: General: Alert, Awake, No acute Distress Eyes/N/T: EOMI, Head/Neck: neck supple, CV: Irregular, no murmurs, Pulm: Abd: soft, nontender, +BS x4 Ext: no clubbing/cyanosis/ Neuro: Alert, no focal deficits, moves all extremities, skin: warm/dry Medical - PN: Obj Da - Labs CBC & Chem 7: 06/19/18 03:55 06/19/18 03:55 Labs: Abnormal Lab Results 06/19/18 06/19/18 06/18/18 03:55 03:55 03:55 WBC 3.7 L Plt Count 121 L Gran % Lymph % (Auto) [place] % (Auto) 15.2 H Lymph # (Auto) 1.0 L Sodium 132 L Chloride 94 L 93 L BUN 29 H Creatinine 1.2 H Calcium 8.0 L 8.2 L Lactate Dehydrogenase Albumin 2.9 L Albumin/Globulin Ratio 0.9 L 06/18/18 06/17/18 06/17/18 03:55 03:45 03:45 WBC Plt Count 137 L 131 L Gran % 84.3 H Lymph % (Auto) 13.7 L 8.4 L [place] % (Auto) Lymph # (Auto) 0.8 L 0.6 L Sodium Chloride 94 L BUN Creatinine Calcium Lactate Dehydrogenase 326 H Albumin Albumin/Globulin Ratio Meds: Medications Acetaminophen (Tylenol) 650 mg PO Q6HP PRN PRN Reason: PAIN/FEVER > 101 Last Admin: 06/18/18 23:58 Dose: 650 mg Documented by: Albuterol/Ipratropium (Duoneb) 3 ml NEB Q4HRT [facility] Last Admin: 06/19/18 15:31 Dose: 3 ml Documented by: Amlodipine Besylate (Norvasc) 5 mg PO QDAY [facility] Last Admin: 06/19/18 09:29 Dose: 5 mg Documented by: Aspirin (Aspirin) 81 mg PO DAILY [facility] Last Admin: 06/19/18 09:30 Dose: 81 mg Documented by: Carvedilol (Coreg) 25 mg PO BIDCC [facility] Last Admin: 06/19/18 07:57 Dose: 25 mg Documented by: Ceftriaxone Sodium (Rocephin) 1 gm IV Q24H [facility] Last Admin: 06/19/18 09:36 Dose: 1 gm Documented by: Furosemide (Lasix) 40 mg IV BIDD [facility] Last Admin: 06/19/18 16:09 Dose: 40 mg Documented by: Heparin Sodium (Porcine) (Heparin) 5,000 unit SQ Q12 [facility] Last Admin: 06/19/18 09:33 Dose: 5,000 unit Documented by: Losartan Potassium (Cozaar) 100 mg PO DAILY [facility] Last Admin: 06/19/18 09:29 Dose: 100 mg Documented by: Naloxone HCl (Narcan) 0.1 mg IV Q2MIN PRN PRN Reason: Opiate Reversal Ondansetron HCl (Zofran) 4 mg IV Q4HP PRN PRN Reason: Nausea And Vomiting Potassium Chloride (Kdur) 10 meq PO BIDCC [facility] Last Admin: 06/19/18 07:58 Dose: 10 meq Documented by: Sodium Chloride (Saline Flush) 10 ml IV Q8 [facility] Last Admin: 06/19/18 16:09 Dose: 10 ml Documented by: Throat Lozenges (Cepacol) 1 lozenge PO PRN PRN PRN Reason: Sore Throat Last Admin: 06/17/18 18:17 Dose: 1 lozenge Documented by: Medical - PN: A/P - Time Spent With Patient Total time spent is greater than 50% in coordination of care (as documented) at patient's floor/unit and/or counseling patient: - Narrative A/P Narrative: A: *Acute on chronic systolic CHF: -Mild lv dysfunction in echo 2014, mild , -echo 2019 is now showing severe lvef decline, 20-25% *Atelectasis: *Acute hypoxic respiratory failure: *UTI(Klebsiella): *DM: *HTN: *AFib w/RVR: -CHADSVASC=5 *Generalized weakness/debility * P: -IV lasix 40 bidd for now -outaptient cardiology follow up / has seen Dr Kowalski before. -Wean off oxygen as able -IS -Continue home Coreg/losartan/amlodipine 5mg -Continue Rocephin -SSI -Discussed anticoagulation - - -PT/OT/ST -ppx: Heparin DNR Medical - PN: Qual - VTE Deep Vein Thrombosis/Pulmonary Embolism Present on Admission: No
[2018-06-20] MEDS: IPRATROPIUM/ALBUTEROL 3 ML AMPUL.NEB NEB SCH ×6 (03:29→23:26)
[2018-06-20] MEDS: 0.9 % SODIUM CHLORIDE 10 ML SYRINGE IV SCH ×4 (05:31→23:58)
[2018-06-20] MEDS: ACETAMINOPHEN 325 MG TABLET PO PRN (05:41)
[2018-06-20 06:18] LABS: Basophils # (Auto) 0 K/mcL (0.0-0.3); Basophils % (Auto) 0.4 % (0.0-2.0); Eosinophils # (Auto) 0 K/mcL (0.0-0.7); Eosinophils % (Auto) 0.7 % (0.0-7.0); Granulocytes % (Auto) 44.5 % (38.0-78.0); Lymphocytes % (Auto) 37.6 % (15.5-49.0); Mean Cell Volume 89.8 fL (80.0-100.0); Mean Corpuscular HGB Conc 33.2 g/dL (31.0-36.0); Monocytes # (Auto) 0.5 K/mcL (0.1-0.9); Monocytes % (Auto) 16.8 % (1.0-12.0); Platelet Count 123 K/mcL (140-440); RBC 4.21 M/mcL (4.00-5.20); Red Cell Distribution Width 13.7 % (11.5-14.5)
[2018-06-20 06:24] LABS: ALT/SGPT 25 U/l (0-40); Albumin 3.2 gm/dL (3.2-5.2); Albumin/Globulin Ratio 1.1 (1.0-2.3); Alkaline Phosphatase 59 U/L (39-117); Bilirubin,Direct < 0.2 mg/dL (0.0-0.3); Blood Urea Nitrogen 30 mg/dl (8-23); Gamma Glutamyl Transpeptidase 17 U/L (5-36); Uric Acid 6.4 mg/dL (2.5-8.0)
--- NOTE | 2018-06-20 07:12 | Internal Med Progress Note ---
Medical - PN: Subj Patient information: Note initiated : 06/20/18 at 7:06 am Service Date, if different from initiated Date: [] Patient: Mireya Paul a 88 y/o F admitted on 06/16/18 for Weakness. Chief Complaint: [] Interval history: Ms. Paul is a 88 year old F with history of atrial fibrillation, diabetes, heart failure presents to the emergency room today twice for evaluation of weakness shortness of breath. The patient was not feeling well yesterday but was able to carry out her activities of daily living, this morning she was noted that she was not herself weak tired and short of breath on minimal exertion. She denied any chest pain, cough fever chills. The patient was seen in the ED earlier today and diagnosed with mild CHF, she had no increased oxygen needs at that time was treated with diuretics and discharged back home. After going back home the patient after getting in the house was very weak, unable to do much inside the house her son noted that he had to literally carry her back to the hospital. He is very concerned that patient lives alone and will not be able to care for himself. On presentation to the ER again the patient was afebrile temperature 97.3, heart rate ranged from 83 239, blood pressure 132/89 and saturation of 85%, needing 2 L of oxygen to maintain more than 90. UA was suggestive of a UTI, patient was given levofloxacin and admitted to the hospital for further management. Patient's lab done today showed WBC count of 7.2, neutrophils 87% hemoglobin 13 .3 platelets 166, sodium 135 potassium 4.0 creatinine 1.0 glucose 125 BNP 2864. Chest x-ray done today showed mild CHF. EKG shows lbbb and atrial fibrillation The patient denies any foul-smelling urine or burning urine, does have increased frequency of urination. The patient has chronic headaches, chronic blurring of vision from macular degeneration, she has abdominal pain a bandlike sensation in her abdomen which notes has been going on for many years, she denies nausea vomiting diarrhea denies any new joint pains denies any skin rashes denies any bleeding from anywhere. Given that the patient is very weak unable to care for herself, has somewhat increased oxygen needs, tachycardic from atrial fibrillation and possible UTI she is being admitted to the hospital for further management. 06/17 Patient seen examined, feels better than yesterday no new complaints or concerns low grade temp noted, no new overnight issues. 06/18 Patient seen examined, no acute issues tolerating po meds well on 2 L oxygen Febrile to 102 Echo shows severe chf, 20-25% lvef 06/19 patient seen examined, no acute issues, feeling much better today remains on oxygen fever curve improving 06/20 Slept well but still tired this morning. Has a mild cough with clear sputum. Has shortness of breath which is much improved getting close to baseline. Placed on room air this morning and sats low 90s. T-max last night 100.2 previous night it was 100.5. Review of Systems: denies headache/fever/chills/nausea/vomiting/chest or abdominal pain/cough/dyspnea/diarrhea. Otherwise see above. - Constitutional Vitals: Vital Signs Temp Pulse Resp BP Pulse Ox 99.0 F 87 20 109/57 94 06/20/18 03:34 06/19/18 23:52 06/20/18 03:34 06/20/18 03:34 06/20/18 03:34 Period Temp Pulse Resp BP Sys/Mayen Pulse Ox Last 24 Hr 97.5 F-100.2 F 71-87 18-24 103-116/56-67 94-100 Intake and Output 06/19/18 06/20/18 06/20/18 21:59 05:59 13:59 Intake Total 360 340 Output Total 775 400 Balance -415 -400 340 Weight 71.622 kg Intake & Output: Intake & Output 06/19/18 06/20/18 06/20/18 21:59 05:59 13:59 Intake Total 360 340 Output Total 775 400 Balance -415 -400 340 Weight 71.622 kg Intake: Oral 360 340 Output: Urine Catheter Amount 600 Void Amount 175 400 Other: Meal Dinner Percent of Meal Consumed 25% Feeding Ability Independent Urine Appearance Clear Urine Color Dark Yellow Urine Odor Normal Exam: General: Alert, Awake, No acute Distress Eyes/N/T: EOMI, Head/Neck: neck supple, CV: Irregular, no murmurs, Pulm: b/l rhonchi/rales, no wheezing Abd: soft, nontender, +BS x4 Ext: no clubbing/cyanosis, no edema Neuro: Alert, no focal deficits, moves all extremities, skin: warm/dry Medical - PN: Obj Da - Labs CBC & Chem 7: 06/20/18 04:10 06/20/18 04:10 Labs: Abnormal Lab Results 06/20/18 06/20/18 06/19/18 04:10 04:10 03:55 WBC 2.8 L Plt Count 123 L Gran % Lymph % (Auto) [place] % (Auto) 16.8 H Gran # 1.2 L Lymph # (Auto) 1.0 L Sodium 132 L Chloride 94 L BUN 30 H 29 H Creatinine Calcium 8.1 L 8.0 L Lactate Dehydrogenase Albumin 2.9 L Albumin/Globulin Ratio 0.9 L 06/19/18 06/18/18 06/18/18 03:55 03:55 03:55 WBC 3.7 L Plt Count 121 L 137 L Gran % Lymph % (Auto) 13.7 L [place] % (Auto) 15.2 H Gran # Lymph # (Auto) 1.0 L 0.8 L Sodium Chloride 93 L BUN Creatinine 1.2 H Calcium 8.2 L Lactate Dehydrogenase Albumin Albumin/Globulin Ratio 06/17/18 06/17/18 03:45 03:45 WBC Plt Count 131 L Gran % 84.3 H Lymph % (Auto) 8.4 L [place] % (Auto) Gran # Lymph # (Auto) 0.6 L Sodium Chloride 94 L BUN Creatinine Calcium Lactate Dehydrogenase 326 H Albumin Albumin/Globulin Ratio Meds: Medications Acetaminophen (Tylenol) 650 mg PO Q6HP PRN PRN Reason: PAIN/FEVER > 101 Last Admin: 06/20/18 05:41 Dose: 650 mg Documented by: Albuterol/Ipratropium (Duoneb) 3 ml NEB Q4HRT [facility] Last Admin: 06/20/18 03:29 Dose: 3 ml Documented by: Amlodipine Besylate (Norvasc) 5 mg PO QDAY [facility] Last Admin: 06/19/18 09:29 Dose: 5 mg Documented by: Aspirin (Aspirin) 81 mg PO DAILY [facility] Last Admin: 06/19/18 09:30 Dose: 81 mg Documented by: Carvedilol (Coreg) 25 mg PO BIDCC [facility] Last Admin: 06/19/18 17:31 Dose: 25 mg Documented by: Ceftriaxone Sodium (Rocephin) 1 gm IV Q24H [facility] Last Admin: 06/19/18 09:36 Dose: 1 gm Documented by: Furosemide (Lasix) 40 mg IV BIDD [facility] Last Admin: 06/19/18 16:09 Dose: 40 mg Documented by: Heparin Sodium (Porcine) (Heparin) 5,000 unit SQ Q12 [facility] Last Admin: 06/19/18 21:15 Dose: 5,000 unit Documented by: Losartan Potassium (Cozaar) 100 mg PO DAILY [facility] Last Admin: 06/19/18 09:29 Dose: 100 mg Documented by: Naloxone HCl (Narcan) 0.1 mg IV Q2MIN PRN PRN Reason: Opiate Reversal Ondansetron HCl (Zofran) 4 mg IV Q4HP PRN PRN Reason: Nausea And Vomiting Potassium Chloride (Kdur) 10 meq PO BIDCC [facility] Last Admin: 06/19/18 17:31 Dose: 10 meq Documented by: Sodium Chloride (Saline Flush) 10 ml IV Q8 [facility] Last Admin: 06/20/18 05:31 Dose: 10 ml Documented by: Throat Lozenges (Cepacol) 1 lozenge PO PRN PRN PRN Reason: Sore Throat Last Admin: 06/17/18 18:17 Dose: 1 lozenge Documented by: Medical - PN: A/P - Time Spent With Patient Total time spent is greater than 50% in coordination of care (as documented) at patient's floor/unit and/or counseling patient: - Narrative A/P Narrative: A: *Acute on chronic systolic CHF: -Mild lv dysfunction in echo 2014, mild , -echo 2019 is now showing severe lvef decline, 20-25% *Atelectasis: *Acute hypoxic respiratory failure: -Changed to room air this morning *UTI(Klebsiella): *DM: *HTN: *AFib w/RVR: Now rate controlled -CHADSVASC=5 -She believes she has been on Coumadin in the past. Patient denies any history of bleeding *CKD III: *Generalized weakness/debility *Leukopenia: P: -IV lasix 40 bidd to po bid -outaptient cardiology follow up / has seen Dr Kowalski before. -Wean off oxygen as able -IS -Continue home Coreg/losartan/amlodipine 5mg -Continue Rocephin -SSI -Discussed anticoagulation; obtain PCP records to determine if anticoagulation was stopped for any particular reason - - -PT/OT/ST -ppx: Heparin DNR Medical - PN: Qual - VTE Deep Vein Thrombosis/Pulmonary Embolism Present on Admission: No
[2018-06-20] MEDS: CARVEDILOL 12.5 MG TABLET PO SCH ×2 (08:32→18:04)
[2018-06-20] MEDS: POTASSIUM CHLORIDE 10 MEQ TABLET PO SCH ×2 (08:32→18:04)
[2018-06-20] MEDS: amLODIPine 5 MG TABLET PO SCH (08:53)
[2018-06-20] MEDS: LOSARTAN 50 MG TABLET PO SCH (08:53)
[2018-06-20] MEDS: HEPARIN 5,000 UNIT/ML VIAL SQ SCH (08:54)
[2018-06-20] MEDS: cefTRIAXone 1 GM VIAL IV SCH (08:54)
[2018-06-20] MEDS: ASPIRIN 81 MG TAB.CHEW PO SCH (08:54)
[2018-06-20] MEDS ORDERED: FUROSEMIDE 40 MG TABLET PO SCH ×2 (09:00→21:00)
[2018-06-20] MEDS ORDERED: INSULIN LISPRO 1 UNIT/0.01 ML UNIT SQ SCH (11:30)
[2018-06-20] MEDS ORDERED: OSELTAMIVIR PHOSPHATE 6 MG/ML BOTTLE PO ONE (13:18)
[2018-06-20 14:03] LABS: Band Neutrophils % 25 % (0-10); Eosinophils % (Manual) 1 % (0-7); Lymphocytes % 40 % (15-49); Monocytes % (Manual) 9 % (1-12); Platelet Estimate DECR (NORMAL); RBC Morphology NORMAL (NORMAL); Segmented Neutrophils % 23 % (38-78)
[2018-06-20] MEDS ORDERED: ONDANSETRON 4 MG/2 ML VIAL IV PRN (14:03)
[2018-06-20] MEDS ORDERED: BENZOCAINE/MENTHOL 1 LOZENGE PO PRN (14:03)
[2018-06-20] MEDS ORDERED: ACETAMINOPHEN 325 MG TABLET PO PRN (14:03)
[2018-06-20] MEDS ORDERED: NALOXONE HCL 0.4 MG/ML VIAL IV PRN (14:03)
[2018-06-20] MEDS: INSULIN LISPRO 1 UNIT/0.01 ML UNIT SQ SCH ×2 (18:05→21:43)
[2018-06-20] MEDS ORDERED: HEPARIN 5,000 UNIT/ML VIAL SQ SCH (21:00)
[2018-06-20] MEDS: FUROSEMIDE 40 MG TABLET PO SCH (21:27)
[2018-06-20] MEDS: APIXABAN 5 MG TABLET PO SCH (21:27)
[2018-06-20] MEDS: OSELTAMIVIR PHOSPHATE 6 MG/ML BOTTLE PO SCH (21:43)
[2018-06-21] MEDS: IPRATROPIUM/ALBUTEROL 3 ML AMPUL.NEB NEB SCH ×3 (03:15→11:26)
[2018-06-21 06:17] LABS: Mean Cell Volume 89.8 fL (80.0-100.0); Mean Corpuscular HGB Conc 32.8 g/dL (31.0-36.0); Platelet Count 106 K/mcL (140-440); RBC 4.06 M/mcL (4.00-5.20); Red Cell Distribution Width 13.6 % (11.5-14.5)
[2018-06-21 06:25] LABS: ALT/SGPT 92 U/l (0-40); Albumin 3.2 gm/dL (3.2-5.2); Albumin/Globulin Ratio 1.2 (1.0-2.3); Alkaline Phosphatase 72 U/L (39-117); Bilirubin,Direct < 0.2 mg/dL (0.0-0.3); Blood Urea Nitrogen 28 mg/dl (8-23); Gamma Glutamyl Transpeptidase 33 U/L (5-36); Uric Acid 6.1 mg/dL (2.5-8.0)
--- NOTE | 2018-06-21 07:18 | Internal Med Progress Note ---
Medical - PN: Subj Patient information: Note initiated : 06/21/18 at 7:13 am Service Date, if different from initiated Date: [] Patient: Mireya Paul a 88 y/o F admitted on 06/16/18 for Weakness. Chief Complaint: [] Interval history: Ms. Paul is a 88 year old F with history of atrial fibrillation, diabetes, heart failure presents to the emergency room today twice for evaluation of weakness shortness of breath. The patient was not feeling well yesterday but was able to carry out her activities of daily living, this morning she was noted that she was not herself weak tired and short of breath on minimal exertion. She denied any chest pain, cough fever chills. The patient was seen in the ED earlier today and diagnosed with mild CHF, she had no increased oxygen needs at that time was treated with diuretics and discharged back home. After going back home the patient after getting in the house was very weak, unable to do much inside the house her son noted that he had to literally carry her back to the hospital. He is very concerned that patient lives alone and will not be able to care for himself. On presentation to the ER again the patient was afebrile temperature 97.3, heart rate ranged from 83 239, blood pressure 132/89 and saturation of 85%, needing 2 L of oxygen to maintain more than 90. UA was suggestive of a UTI, patient was given levofloxacin and admitted to the hospital for further management. Patient's lab done today showed WBC count of 7.2, neutrophils 87% hemoglobin 13 .3 platelets 166, sodium 135 potassium 4.0 creatinine 1.0 glucose 125 BNP 2864. Chest x-ray done today showed mild CHF. EKG shows lbbb and atrial fibrillation The patient denies any foul-smelling urine or burning urine, does have increased frequency of urination. The patient has chronic headaches, chronic blurring of vision from macular degeneration, she has abdominal pain a bandlike sensation in her abdomen which notes has been going on for many years, she denies nausea vomiting diarrhea denies any new joint pains denies any skin rashes denies any bleeding from anywhere. Given that the patient is very weak unable to care for herself, has somewhat increased oxygen needs, tachycardic from atrial fibrillation and possible UTI she is being admitted to the hospital for further management. 06/17 Patient seen examined, feels better than yesterday no new complaints or concerns low grade temp noted, no new overnight issues. 06/18 Patient seen examined, no acute issues tolerating po meds well on 2 L oxygen Febrile to 102 Echo shows severe chf, 20-25% lvef 06/19 patient seen examined, no acute issues, feeling much better today remains on oxygen fever curve improving 06/20 Slept well but still tired this morning. Has a mild cough with clear sputum. Has shortness of breath which is much improved getting close to baseline. Placed on room air this morning and sats low 90s. T-max last night 100.2 previous night it was 100.5. Review of Systems: denies headache/fever/chills/nausea/vomiting/chest or abdominal pain/cough/dyspnea/diarrhea. Otherwise see above. - Constitutional Vitals: Vital Signs Temp Pulse Resp BP Pulse Ox 97.2 F 78 28 H 108/58 91 06/21/18 03:50 06/21/18 03:50 06/21/18 03:50 06/21/18 03:50 06/21/18 03:50 Period Temp Pulse Resp BP Sys/Mayen Pulse Ox Last 24 Hr 97.2 F-98.8 F 71-81 18-28 104-126/56-73 91-95 Intake and Output 06/20/18 06/21/18 06/21/18 21:59 05:59 13:59 Intake Total 250 Output Total 401 Balance -151 Weight 72.802 kg Intake & Output: Intake & Output 06/20/18 06/21/18 06/21/18 21:59 05:59 13:59 Intake Total 250 Output Total 401 Balance -151 Weight 72.802 kg Intake: Oral 250 Output: Void Amount 400 # of times incontinent of urine 1 Other: Urine Appearance Clear Urine Color Straw Urine Odor Normal # Voids 4 Medical - PN: Obj Da - Labs CBC & Chem 7: 06/21/18 04:26 06/21/18 04:26 Labs: Abnormal Lab Results 06/21/18 06/21/18 06/20/18 04:26 04:26 09:34 WBC 2.4 L Plt Count 106 L [place] % (Auto) Gran # Lymph # (Auto) Seg Neutrophils % 23 L Band Neutrophils % 25 H Sodium Chloride BUN 28 H Glucose 146 H Calcium 8.4 L Phosphorus 2.3 L AST 85 H ALT 92 H Albumin Albumin/Globulin Ratio Triglycerides 155 H 06/20/18 06/20/18 06/19/18 04:10 04:10 03:55 WBC 2.8 L Plt Count 123 L [place] % (Auto) 16.8 H Gran # 1.2 L Lymph # (Auto) 1.0 L Seg Neutrophils % Band Neutrophils % Sodium 132 L Chloride 94 L BUN 30 H 29 H Glucose Calcium 8.1 L 8.0 L Phosphorus AST ALT Albumin 2.9 L Albumin/Globulin Ratio 0.9 L Triglycerides 06/19/18 03:55 WBC 3.7 L Plt Count 121 L [place] % (Auto) 15.2 H Gran # Lymph # (Auto) 1.0 L Seg Neutrophils % Band Neutrophils % Sodium Chloride BUN Glucose Calcium Phosphorus AST ALT Albumin Albumin/Globulin Ratio Triglycerides Meds: Medications Acetaminophen (Tylenol) 650 mg PO Q6HP PRN PRN Reason: PAIN/FEVER > 101 Last Admin: 06/20/18 23:56 Dose: 650 mg Documented by: Albuterol/Ipratropium (Duoneb) 3 ml NEB Q4HRT [facility] Last Admin: 06/21/18 03:15 Dose: 3 ml Documented by: Amlodipine Besylate (Norvasc) 5 mg PO QDAY [facility] Apixaban (Eliquis) 5 mg PO BID [facility] Last Admin: 06/20/18 21:27 Dose: 5 mg Documented by: Aspirin (Aspirin) 81 mg PO DAILY [facility] Last Admin: 06/20/18 18:04 Dose: 25 mg Documented by: Ceftriaxone Sodium (Rocephin) 1 gm IV Q24H [facility] Furosemide (Lasix) 40 mg PO BID [facility] Last Admin: 06/20/18 21:27 Dose: 40 mg Documented by: Insulin Human Lispro (Humalog) 0 unit SQ [facility]; Protocol Last Admin: 06/20/18 21:43 Dose: Not Given Documented by: Losartan Potassium (Cozaar) 100 mg PO DAILY [facility] Naloxone HCl (Narcan) 0.1 mg IV Q2MIN PRN PRN Reason: Opiate Reversal Ondansetron HCl (Zofran) 4 mg IV Q4HP PRN PRN Reason: Nausea And Vomiting Oseltamivir Phosphate (Tamiflu) 30 mg PO BID [facility] Last Admin: 06/20/18 21:43 Dose: 30 mg Documented by: Potassium Chloride (Kdur) 10 meq PO BIDCC [facility] Last Admin: 06/20/18 18:04 Dose: 10 meq Documented by: Sodium Chloride (Saline Flush) 10 ml IV Q8 [facility] Last Admin: 06/20/18 23:58 Dose: 10 ml Documented by: Throat Lozenges (Cepacol) 1 lozenge PO PRN PRN PRN Reason: Sore Throat Medical - PN: A/P - Time Spent With Patient Total time spent is greater than 50% in coordination of care (as documented) at patient's floor/unit and/or counseling patient: - Narrative A/P Narrative: A: *Influenza A (H3 subtype): *Acute on chronic systolic CHF: improved -Mild lv dysfunction in echo 2014, mild , -echo 2019 is now showing severe lvef decline, 20-25% *Atelectasis: *Acute hypoxic respiratory failure: -now on room air *UTI(Klebsiella): *DM: *HTN: *AFib w/RVR: Now rate controlled -CHADSVASC=5 -She believes she has been on Coumadin in the past. Patient denies any history of bleeding *CKD III: *Generalized weakness/debility *Leukopenia: P: -tamiflu -IV lasix 40 bidd to po bid -outaptient cardiology follow up / has seen Dr Kowalski before. -IS -Continue home Coreg/losartan/amlodipine 5mg -Continue Rocephin -SSI -f/u with PCP regarding continuing anticoagulation -monitor cbc -PT/OT/ST -ppx: started elilynnette DNR Medical - PN: Qual - VTE Deep Vein Thrombosis/Pulmonary Embolism Present on Admission: No
[2018-06-21 07:53] LABS: Band Neutrophils % 1 % (0-10); Eosinophils % (Manual) 3 % (0-7); Lymphocytes % 50 % (15-49); Monocytes % (Manual) 14 % (1-12); Platelet Estimate DECREASED (NORMAL); RBC Morphology NORMAL (NORMAL); Segmented Neutrophils % 32 % (38-78)
[2018-06-21] MEDS: INSULIN LISPRO 1 UNIT/0.01 ML UNIT SQ SCH (07:53)
[2018-06-21] MEDS: 0.9 % SODIUM CHLORIDE 10 ML SYRINGE IV SCH (08:07)
[2018-06-21] MEDS: CARVEDILOL 12.5 MG TABLET PO SCH (08:08)
[2018-06-21] MEDS: POTASSIUM CHLORIDE 10 MEQ TABLET PO SCH (08:09)
[2018-06-21] MEDS: APIXABAN 5 MG TABLET PO SCH (08:09)
[2018-06-21] MEDS: OSELTAMIVIR PHOSPHATE 6 MG/ML BOTTLE PO SCH (08:09)
[2018-06-21] MEDS: FUROSEMIDE 40 MG TABLET PO SCH (08:09)
[2018-06-21] MEDS ORDERED: ASPIRIN 81 MG TAB.CHEW PO SCH (09:00)
[2018-06-21] MEDS ORDERED: amLODIPine 5 MG TABLET PO SCH (09:00)
[2018-06-21] MEDS ORDERED: cefTRIAXone 1 GM VIAL IV SCH (09:00)
[2018-06-21] MEDS ORDERED: LOSARTAN 50 MG TABLET PO SCH (09:00)
--- NOTE | 2018-06-21 09:48 | Discharge Summary ---
Medical - DS: Prov Patient information: Note initiated : 06/21/18 at 9:46 am Service Date, if different from initiated Date: [] Patient: Mireya Paul a 88 y/o F admitted on 06/16/18 for Weakness. Chief Complaint: [] Date of admission: 06/16/18 19:37 Discharge date: 06/21/18 Primary care physician: Yahaira Perez DO Consults: 06/16/18 Consult to Physician [CONS] Stat Comment: Consulting Provider: Jonathan Dixon Reason For Exam: Physician to Consult Medical - DS: Meds - Discharge Medications Prescriptions: Apixaban [Eliquis] 5 mg PO BID #60 tab Oseltamivir Phosphate [Tamiflu] 30 mg PO BID #1 bottle Active and Home Medications: Home Medications Aspirin [Susan Chewable Aspirin] 81 mg PO DAILY 11/30/14 [History Confirmed 06/16/18 Last Taken 06/15/18 08:00] amlodipine 5 mg tablet 5 mg PO QDAY #90 tab 03/01/18 [Rx Confirmed 06/16/18 Last Taken 06/15/18 07:00] furosemide 40 mg tablet 40 mg PO QDAY #90 tab 03/01/18 [Rx Confirmed 06/16/18 Last Taken 06/15/18 07:00] losartan 100 mg tablet 100 mg PO QDAY #90 tab 03/01/18 [Rx Confirmed 06/16/18 Last Taken 06/15/18 07:00] metformin 500 mg tablet 500 mg PO QDAY #90 tab 03/01/18 [Rx Confirmed 06/16/18 Last Taken 06/15/18 07:00] carvedilol 25 mg tablet 25 mg PO BID #60 tab 05/25/18 [Rx Confirmed 06/16/18 Last Taken 06/15/18 18:00] Potassium Chloride [Kdur] 10 meq PO BID 06/16/18 [History Confirmed 06/16/18 Last Taken 06/16/18 18:00] Medical - DS: Hosp Hospital course: Ms. Paul is a 88 year old F with history of atrial fibrillation, diabetes, heart failure presents to the emergency room today twice for evaluation of weakness shortness of breath. The patient was not feeling well yesterday but was able to carry out her activities of daily living, this morning she was noted that she was not herself weak tired and short of breath on minimal exertion. She denied any chest pain, cough fever chills. The patient was seen in the ED earlier today and diagnosed with mild CHF, she had no increased oxygen needs at that time was treated with diuretics and discharged back home. After going back home the patient after getting in the house was very weak, unable to do much inside the house her son noted that he had to literally carry her back to the hospital. He is very concerned that patient lives alone and will not be able to care for himself. On presentation to the ER again the patient was afebrile temperature 97.3, heart rate ranged from 83 239, blood pressure 132/89 and saturation of 85%, needing 2 L of oxygen to maintain more than 90. UA was suggestive of a UTI, patient was given levofloxacin and admitted to the hospital for further management. Patient's lab done today showed WBC count of 7.2, neutrophils 87% hemoglobin 13.3 platelets 166, sodium 135 potassium 4.0 creatinine 1.0 glucose 125 BNP 2864. Chest x-ray done today showed mild CHF. EKG shows lbbb and atrial fibrillation The patient denies any foul-smelling urine or burning urine, does have increased frequency of urination. The patient has chronic headaches, chronic blurring of vision from macular degeneration, she has abdominal pain a bandlike sensation in her abdomen which notes has been going on for many years, she denies nausea vomiting diarrhea denies any new joint pains denies any skin rashes denies any bleeding from anywhere. Given that the patient is very weak unable to care for herself, has somewhat increased oxygen needs, tachycardic from atrial fibrillation and possible UTI she is being admitted to the hospital for further management. 06/17 Patient seen examined, feels better than yesterday no new complaints or concerns low grade temp noted, no new overnight issues. 06/18 Patient seen examined, no acute issues tolerating po meds well on 2 L oxygen Febrile to 102 Echo shows severe chf, 20-25% lvef 06/19 patient seen examined, no acute issues, feeling much better today remains on oxygen fever curve improving 06/20 Slept well but still tired this morning. Has a mild cough with clear sputum. Has shortness of breath which is much improved getting close to baseline. Placed on room air this morning and sats low 90s. T-max last night 100.2 previous night it was 100.5. 06/21 Feeling much better, on room air. Afebrile. stable for discharge Discharge diagnosis: Acute on chronic systolic heart failure hypoxic respiratory failure influen Secondary discharge diagnosis: Influenza A H3 subtype Klebsiella UTI acute hypoxic respiratory failure atelectasis diabetes hypertension H fibrillation with RVR chronic kidney disease leukopenia - Time Spent with Patient Total time spent providing and/or coordinating discharge services: Greater than 30 minutes Medical - DS: Exam - Constitutional Vitals: Vital Signs Temp Pulse Pulse Resp BP BP BP 06/21/18 03:50 97.2 F 78 28 H 108/58 06/21/18 00:00 98.1 F 71 24 H 112/56 06/20/18 23:26 75 20 06/20/18 19:20 71 22 06/20/18 19:00 97.5 F 78 24 H 108/66 06/20/18 16:44 98.8 F 22 126/73 06/20/18 16:03 06/20/18 16:02 71 20 06/20/18 12:11 98.0 F 20 110/67 06/20/18 11:15 72 20 Pulse Ox 06/21/18 03:50 91 06/21/18 00:00 91 06/20/18 23:26 06/20/18 19:20 91 06/20/18 19:00 93 06/20/18 16:44 95 06/20/18 16:03 92 06/20/18 16:02 06/20/18 12:11 92 06/20/18 11:15 Intake and Output 06/20/18 06/21/18 06/21/18 21:59 05:59 13:59 Intake Total 250 Output Total 401 Balance -151 Intake: Oral 250 Output: Void Amount 400 # of times incontinent of urine 1 Other: Urine Appearance Clear Urine Color Straw Urine Odor Normal # Voids 4 Weight 72.802 kg Medical - DS: Data Labs on day of discharge: Labs from last 24 hours 06/21/18 06/21/18 06/20/18 04:26 04:26 15:20 WBC 2.4 L RBC 4.06 Hgb 12.0 Hct 36.5 MCV 89.8 MCH 29.5 MCHC 32.8 RDW 13.6 Plt Count 106 L MPV 8.4 Total Counted 100 Seg Neutrophils % 32 L Band Neutrophils % 1 Lymphocytes % 50 H Monocytes % (Manual) 14 H Eosinophils % (Manual) 3 Reactive Lymphocytes Platelet Estimate Decreased RBC Morphology Normal Sodium 137 Potassium 4.0 Chloride 100 Carbon Dioxide 28 Anion Gap 9.0 BUN 28 H Creatinine 0.9 GFR Calculation 57 Glucose 146 H Uric Acid 6.1 Calcium 8.4 L Phosphorus 2.3 L Magnesium 2.1 Total Bilirubin 0.2 Direct Bilirubin < 0.2 GGT 33 AST 85 H ALT 92 H Alkaline Phosphatase 72 Lactate Dehydrogenase 222 Total Protein 5.9 Albumin 3.2 Globulin 2.7 Albumin/Globulin Ratio 1.2 Triglycerides 155 H Procalcitonin < 0.05 06/20/18 09:34 WBC RBC Hgb Hct MCV MCH MCHC RDW Plt Count MPV Total Counted 100 Seg Neutrophils % 23 L Band Neutrophils % 25 H Lymphocytes % 40 Monocytes % (Manual) 9 Eosinophils % (Manual) 1 Reactive Lymphocytes 2 Platelet Estimate Decr RBC Morphology Normal Sodium Potassium Chloride Carbon Dioxide Anion Gap BUN Creatinine GFR Calculation Glucose Uric Acid Calcium Phosphorus Magnesium Total Bilirubin Direct Bilirubin GGT AST ALT Alkaline Phosphatase Lactate Dehydrogenase Total Protein Albumin Globulin Albumin/Globulin Ratio Triglycerides Procalcitonin Preliminary micro results at discharge 06/18/18 06:20 Blood Culture - Preliminary Blood 06/18/18 04:30 Blood Culture - Preliminary Blood Medical - DS: A/P - Patient/Caregiver Discharge Instructions Activity: as per physical therapy Diet: Consistent Carbohydrate Additional Instructions: Recommend outpatient CBC follow-up for leukopenia in 3-5 days, follow-up with primary care provider and/or hematology Referral to to see Dr. Kowalski and 5-10 days. Follow-up with PCP and fixed income director regarding continued anticoagulation. - Follow up Plan Follow up with: Yahaira Perez DO [Primary Care Provider] - Disposition: Xfer SNF Prognosis: Fair Rehab Potential: Fair I certify that the patient requires SNF services: Yes Overall status at discharge: patient is progressing back to baseline Medical - DS: Qual - VTE Deep Vein Thrombosis/Pulmonary Embolism Present on Admission: No
[2018-06-21] MEDS ORDERED: OSELTAMIVIR PHOSPHATE 6 MG/ML BOTTLE PO SCH (13:18)
== END 2018-06-21 13:55 | DRG 291 ==
LOC: ICU 13:52 → ED 13:52 → OBSVTOIN 19:37 → ICU 19:45 → MEDSUR 06-20 14:02
PROVIDERS: ADMIT Internal Medicine; ATTEND Internal Medicine